=== PATIENT | male | born 1930 | race Caucasian/White ===

== ENCOUNTER 2017-06-17 17:14 | Inpatient (IN) | payer MEDICARE, OTHER ==
--- NOTE | 2017-06-17 18:16 | EDM.PDOC ---
ED HPI GENERAL MEDICAL PROBLEM - General Chief Complaint: General Stated Complaint: dizziness, no appetite, numbness legs Time Seen by Provider: 06/17/17 17:50 Source of Information: Reports: Patient, Family, RN History Limitations: Reports: No Limitations - History of Present Illness INITIAL COMMENTS - FREE TEXT/NARRATIVE: 86 yr male presents with dizziness on/off today, numbness to arms for about 1 year, and numbness to legs progressively getting worse. State the numbness is so bad, that he can't walk and needed assist of walker and 2 friends to leave his home. States UTI and was started on antibiotic last week and had diarrhea for 1 day. States this should be done with tomorrow am dose. States he hasn't ate for a few days, but did have a meatball this am. New medication of CoQ10. Onset: Today (dizziness) - Related Data Allergies Allergy/AdvReac Type Severity Reaction Status Date / Time No Known Allergies Allergy Verified 06/17/17 17:39 Home Meds: Home Meds Furosemide [Lasix] 20 mg PO DAILY PRN 11/06/14 [History] Hydrochlorothiazide 25 mg PO BEDTIME 11/06/14 [History] Metoprolol Tartrate [Lopressor] 25 mg PO BID 11/06/14 [History] Simvastatin [Zocor] 20 mg PO BEDTIME 11/06/14 [History] amLODIPine Besylate [Amlodipine Besylate] 10 tab PO DAILY 11/06/14 [History] Aspirin [Nicki Chewable] 81 mg PO BEDTIME 10/19/15 [History] Levothyroxine Sodium [Synthroid] 25 mcg PO DAILY 11/12/15 [History] busPIRone [Buspar] 15 mg PO BID 11/12/15 [History] metFORMIN [Glucophage] 500 mg PO BIDMEALS 11/12/15 [History] Sulfamethoxazole/Trimethoprim [Sulfamethoxazole-Tmp Ds Tablet] 1 tab PO BID [History] Ubidecarenone [Co Q-10] 100 mg PO DAILY 06/17/17 [History] Past Medical History HEENT History: Reports: Cataract Cardiovascular History: Reports: High Cholesterol, Hypertension Respiratory History: Reports: SOB Gastrointestinal History: Reports: Chronic Constipation Genitourinary History: Reports: Prostate Disorder Other Genitourinary History: Pt has a hx of prostate cancer that was treated with radiation beads. Endocrine/Metabolic History: Reports: Diabetes, Type II Oncologic (Cancer) History: Reports: Prostate Dermatologic History: Reports: Other (See Below) Other Dermatologic History: Skin Ca. Growth removed - Right cheek - Infectious Disease History Infectious Disease History: Reports: Mumps - Past Surgical History Musculoskeletal Surgical History: Reports: Hip Replacement Social & Family History - Family History Family Medical History: Noncontributory Cardiac: Reports: None - Tobacco Use Smoking Status *Q: Unknown Ever Smoked Second Hand Smoke Exposure: No - Caffeine Use Caffeine Use: Reports: None - Recreational Drug Use Recreational Drug Use: No ED ROS GENERAL - Review of Systems Review Of Systems: See Below Constitutional: Reports: Weakness, Decreased Appetite HEENT: Reports: No Symptoms, Glasses Respiratory: Reports: No Symptoms. Denies: Shortness of Breath, Cough Cardiovascular: Reports: Lightheadedness. Denies: Chest Pain, Edema GI/Abdominal: Reports: No Symptoms : Reports: Frequency Musculoskeletal: Reports: Foot Pain, Other (numbness legs) Skin: Reports: No Symptoms Neurological: Reports: Numbness, Difficulty Walking, Weakness Psychiatric: Reports: Other (Takes Buspar) ED EXAM, NEURO - Physical Exam Exam: See Below Exam Limited By: No Limitations General Appearance: Alert, No Apparent Distress Ears: Normal External Exam Nose: Normal Inspection Throat/Mouth: Other (steri-strips to right neck) Head Exam: Atraumatic, Normocephalic Neck: Supple, Non-Tender Respiratory/Chest: No Respiratory Distress, Lungs Clear Cardiovascular: Normal Peripheral Pulses, Regular Rate, Rhythm, No Edema GI/Abdominal: Soft, Non-Tender, No Distention Neurological: Alert, Normal Mood/Affect, Oriented x 3, Difficulty Walking Back Exam: Normal Inspection Extremities: No Pedal Edema, Normal Capillary Refill, Joint Swelling (left third toe is swollen, probable gout/tophii) Psychiatric: Normal Affect, Normal Mood Skin Exam: Warm, Dry, Normal Color Course - Vital Signs Last Recorded V/S: Last Vital Signs Temp 97.7 F 06/17/17 17:59 Pulse 74 06/17/17 17:59 Resp 18 06/17/17 17:59 BP 128/54 L 06/17/17 17:59 Pulse Ox 97 06/17/17 17:59 - Orders/Labs/Meds Orders: Active Orders 24 hr Category Date Time Status Admission Diagnosis [ADT] Urgent ADT 06/17/17 19:06 Active Patient Status [ADT] Routine ADT 06/17/17 19:22 Active Oxygen Therapy [RC] PRN Care 06/17/17 19:22 Active Up With Assistance [RC] ASDIRECTED Care 06/17/17 19:22 Active Vital Signs [RC] Q4H Care 06/17/17 19:22 Active Consistent Carbohydrate Diet [DIET] Diet 06/18/17 Breakfast Ordered Acetaminophen [Tylenol] Med 06/17/17 19:22 Active 650 mg PO Q4H PRN Aspirin Med 06/17/17 20:00 Active 81 mg PO BEDTIME Docusate Sodium [Colace] Med 06/17/17 19:22 Active 100 mg PO DAILY PRN Levothyroxine Med 06/18/17 07:00 Active 25 mcg PO ACBREAKFAST Magnesium Hydroxide [Milk of Magnesia] Med 06/17/17 19:22 Active 30 ml PO BID PRN Metoprolol Tartrate [Lopressor] Med 06/17/17 20:00 Active 25 mg PO BID Simvastatin [Zocor] Med 06/17/17 20:00 Active 20 mg PO BEDTIME Sodium Chloride 0.9% [Normal Saline] 1,000 ml Med 06/17/17 19:30 Active IV ASDIRECTED amLODIPine [Norvasc] Med 06/17/17 20:00 Active 10 mg PO BEDTIME busPIRone [Buspar] Med 06/17/17 20:00 Active 15 mg PO BID Medication Orders Acetaminophen (Tylenol) 650 mg PO Q4H PRN PRN Reason: analgesia/fever Amlodipine Besylate (Norvasc) 10 mg PO BEDTIME ROBEL Aspirin (Aspirin) 81 mg PO BEDTIME [facility]EL Buspirone HCl (Buspar) 15 mg PO BID [facility]EL Docusate Sodium (Colace) 100 mg PO DAILY PRN PRN Reason: Constipation Sodium Chloride (Normal Saline) 1,000 mls @ 125 mls/hr IV ASDIRECTED ROBEL Levothyroxine Sodium (Levothyroxine) 25 mcg PO ACBREAKFAST ROBEL Magnesium Hydroxide (Milk Of Magnesia) 30 ml PO BID PRN PRN Reason: Constipation Metoprolol Tartrate (Lopressor) 25 mg PO BID ROBEL Simvastatin (Zocor) 20 mg PO BEDTIME [facility] Labs: Laboratory Tests 06/17/17 06/17/17 06/17/17 Range/Units 18:10 18:10 18:10 WBC 8.5 (4.0-11.0) K/uL RBC 3.75 L (4.50-6.50) M/uL Hgb 11.3 L (13.0-18.0) g/dL Hct 32.4 L (40.0-54.0) % MCV 86 (76-96) fL MCH 30.1 (27.0-32.0) pg MCHC 34.9 (31.0-35.0) g/dL RDW 15.4 (11.0-16.0) % Plt Count 248 (150-400) K/uL MPV 9.4 (6.0-10.0) fL Neut % (Auto) 66.1 (45.0-70.0) % Lymph % (Auto) 22.2 (20.0-40.0) % [place] % (Auto) 11.0 H (3.0-10.0) % Eos % (Auto) 0.2 L (1.0-5.0) % Baso % (Auto) 0.5 (0.0-0.5) % Neut # (Auto) 5.64 (2.00-7.50) K/uL Lymph # (Auto) 1.89 (1.50-4.00) K/uL [place] # (Auto) 0.94 H (0.20-0.80) K/uL Eos # (Auto) 0.02 L (0.04-0.40) K/uL Baso # (Auto) 0.04 (0.02-0.10) K/uL Sodium 127 L (136-145) mmol/L Potassium 3.8 (3.5-5.1) mmol/L Chloride 90 L (98-107) mmol/L Carbon Dioxide 21.8 D (21.0-32.0) mmol/L Anion Gap 19.0 H (5.0-15.0) mmol/L BUN 57 H* (8-26) mg/dL Creatinine 3.08 H* D (0.70-1.30) mg/dL Est Cr Clr Drug Dosing TNP Estimated GFR (MDRD) 19 L (>60) MLS/MIN BUN/Creatinine Ratio 18.5 (6-25) Glucose 157 H (74-100) mg/dL Calcium 9.4 (8.5-10.1) mg/dL Total Bilirubin 0.6 D (0.0-1.0) mg/dL AST 25 (15-37) U/L ALT 15 (12-78) U/L Alkaline Phosphatase 98 (46-116) U/L Total Protein 7.6 (6.4-8.2) g/dL Albumin 3.9 (3.4-5.0) g/dL Globulin 3.7 (2.2-4.2) g/dL Albumin/Globulin Ratio 1.1 (0.8-2.0) TSH, Ultra Sensitive 2.675 (0.358-3.740) uIU/mL Urine Color Yellow Urine Appearance Clear (CLEAR) Urine pH 5.5 (5.0-8.0) Ur Specific [place] 1.010 (1.003-1.030) Urine Protein Negative (NEGATIVE) mg/dL Urine Glucose (UA) Negative (NEGATIVE) mg/dL Urine Ketones Negative (NEGATIVE) mg/dL Urine Occult Blood Negative (NEGATIVE) Urine Nitrite Negative (NEGATIVE) Urine Bilirubin Negative (NEGATIVE) Urine Urobilinogen 0.2 (0.2-1.0) E.U./dL Ur Leukocyte Esterase Negative (NEGATIVE) Urine RBC Not seen /HPF Urine WBC 0-5 H /HPF Ur Squamous Epith Cells Rare /HPF Urine Bacteria Not seen /HPF Meds: Medications Generic Name Dose Route Start Last Admin Trade Name Freq PRN Reason Stop Dose Admin Acetaminophen 650 mg 06/17/17 19:22 Tylenol PO Q4H PRN analgesia/fever Amlodipine Besylate 10 mg 06/17/17 20:00 Norvasc PO BEDTIME ROBEL Aspirin 81 mg 06/17/17 20:00 Aspirin PO BEDTIME ROBEL Buspirone HCl 15 mg 06/17/17 20:00 Buspar PO BID ROBEL Docusate Sodium 100 mg 06/17/17 19:22 Colace PO DAILY PRN Constipation Sodium Chloride 1,000 mls @ 125 mls/hr 06/17/17 19:30 Normal Saline IV ASDIRECTED ROBEL Levothyroxine Sodium 25 mcg 06/18/17 07:00 Levothyroxine PO ACBREAKFAST ROBEL Magnesium Hydroxide 30 ml 06/17/17 19:22 Milk Of Magnesia PO BID PRN Constipation Metoprolol Tartrate 25 mg 06/17/17 20:00 Lopressor PO BID ROBEL Simvastatin 20 mg 06/17/17 20:00 Zocor PO BEDTIME ROBEL Discontinued Medications Generic Name Dose Route Start Last Admin Trade Name Freq PRN Reason Stop Dose Admin Sodium Chloride 1,000 mls @ 125 mls/hr 06/17/17 19:00 Normal Saline IV ASDIRECTED ROBEL Non-Formulary Medication 10 tab 06/18/17 08:00 Amlodipine Besylate [Amlodipine Besylate] PO DAILY ROBEL Non-Formulary Medication 81 mg 06/17/17 20:00 Aspirin [Nicki Chewable Aspirin] PO BEDTIME ROBEL Non-Formulary Medication 15 mg 06/17/17 20:00 Buspirone [Buspar] PO BID ROBEL Non-Formulary Medication 20 mg 06/18/17 08:00 Furosemide [Lasix] PO DAILY ROBEL Non-Formulary Medication 25 mcg 06/18/17 08:00 Levothyroxine Sodium [Synthroid] PO DAILY ROBEL Non-Formulary Medication 25 mg 06/17/17 20:00 Metoprolol Tartrate [Lopressor] PO BID ROBEL Non-Formulary Medication 20 mg 06/17/17 20:00 Simvastatin [Zocor] PO BEDTIME ROBEL Ondansetron HCl 4 mg 06/17/17 19:20 Zofran IVPUSH 06/17/17 19:21 ONETIME ONE - Re-Assessments/Exams Free Text/Narrative Re-Assessment/Exam: 06/17/17 19:51 LE Review of lab results and noted decrease in kidney function and hyponatremia , U/A improved, no leukocytosis and low hemoglobin noted. Reviewed lab results with pt and friends, will admit for hyponatremia and weakness. Will start IV Nacl @125cc/hr. Departure - Departure Time of Disposition: 18:55 Disposition: Admitted As Inpatient 66 Condition: Fair Clinical Impression: Hyponatremia - Discharge Information Referrals: PCP,None [Primary Care Provider] - Forms: ED Department Discharge - My Orders Last 24 Hours: My Active Orders 06/17/17 19:06 Admission Diagnosis [ADT] Urgent 06/17/17 19:22 Patient Status [ADT] Routine Oxygen Therapy [RC] PRN Up With Assistance [RC] ASDIRECTED Vital Signs [RC] Q4H Acetaminophen [Tylenol] 650 mg PO Q4H PRN Docusate Sodium [Colace] 100 mg PO DAILY PRN Magnesium Hydroxide [Milk of Magnesia] 30 ml PO BID PRN 06/17/17 19:30 Sodium Chloride 0.9% [Normal Saline] 1,000 ml IV ASDIRECTED 06/17/17 20:00 Aspirin 81 mg PO BEDTIME Metoprolol Tartrate [Lopressor] 25 mg PO BID Simvastatin [Zocor] 20 mg PO BEDTIME amLODIPine [Norvasc] 10 mg PO BEDTIME busPIRone [Buspar] 15 mg PO BID 06/18/17 07:00 Levothyroxine 25 mcg PO ACBREAKFAST 06/18/17 Breakfast Consistent Carbohydrate Diet [DIET] - Assessment/Plan Last 24 Hours: My Active Orders 06/17/17 19:06 Admission Diagnosis [ADT] Urgent 06/17/17 19:22 Patient Status [ADT] Routine Oxygen Therapy [RC] PRN Up With Assistance [RC] ASDIRECTED Vital Signs [RC] Q4H Acetaminophen [Tylenol] 650 mg PO Q4H PRN Docusate Sodium [Colace] 100 mg PO DAILY PRN Magnesium Hydroxide [Milk of Magnesia] 30 ml PO BID PRN 06/17/17 19:30 Sodium Chloride 0.9% [Normal Saline] 1,000 ml IV ASDIRECTED 06/17/17 20:00 Aspirin 81 mg PO BEDTIME Metoprolol Tartrate [Lopressor] 25 mg PO BID Simvastatin [Zocor] 20 mg PO BEDTIME amLODIPine [Norvasc] 10 mg PO BEDTIME busPIRone [Buspar] 15 mg PO BID 06/18/17 07:00 Levothyroxine 25 mcg PO ACBREAKFAST 06/18/17 Breakfast Consistent Carbohydrate Diet [DIET]
[2017-06-17] MEDS ORDERED: Sodium Chloride 0.9% 1,000 ML IV SCH (19:00)
[2017-06-17] MEDS ORDERED: Ondansetron 4 MG/2 ML SDV IVPUSH ONE (19:20)
[2017-06-17] MEDS: Sodium Chloride 0.9% 1,000 ML IV SCH (19:20)
[2017-06-17] MEDS ORDERED: Docusate Sodium 100 MG Cap PO PRN (19:22)
[2017-06-17] MEDS ORDERED: Magnesium Hydroxide 400 MG/5 ML Susp 30 ML Cup PO PRN (19:22)
[2017-06-17] MEDS ORDERED: Non-Formulary Medication 1 Each (Metoprolol Tartrate [Lopressor] 25 MG) PO SCH (20:00)
[2017-06-17] MEDS ORDERED: Non-Formulary Medication 1 Each (Simvastatin [Zocor] 20 MG) PO SCH (20:00)
[2017-06-17] MEDS ORDERED: Non-Formulary Medication 1 Each (Aspirin [Bayer Chewable Aspirin] 81 MG) PO SCH (20:00)
[2017-06-17] MEDS ORDERED: Non-Formulary Medication 1 Each (Buspirone [Buspar] 15 MG) PO SCH (20:00)
[2017-06-17] MEDS: amLODIPine 10 MG Tab PO SCH (21:44)
[2017-06-17] MEDS: Metoprolol Tartrate 25 MG Tab PO SCH (21:44)
[2017-06-17] MEDS: busPIRone 15 MG Tab PO SCH ×2 (21:45→21:49)
[2017-06-17] MEDS: Simvastatin 20 MG Tab PO SCH (21:45)
[2017-06-17] MEDS: Aspirin 81 MG Tab.Chew PO SCH (21:45)
[2017-06-17] MEDS ORDERED: busPIRone 10 MG Tab ONE (21:47)
[2017-06-17] MEDS: Acetaminophen 325 MG Tab PO PRN (21:48)
[2017-06-18] MEDS: Melatonin 3 MG Tab PO PRN (01:26)
[2017-06-18] MEDS: Sodium Chloride 0.9% 1,000 ML IV SCH ×3 (03:21→20:46)
[2017-06-18] MEDS: Levothyroxine 25 MCG Tab PO SCH (06:55)
[2017-06-18] MEDS ORDERED: busPIRone 10 MG Tab ONE ×2 (07:18→19:47)
[2017-06-18] MEDS: Metoprolol Tartrate 25 MG Tab PO SCH ×2 (07:25→19:55)
[2017-06-18] MEDS: busPIRone 15 MG Tab PO SCH ×2 (07:25→19:58)
[2017-06-18] MEDS ORDERED: Non-Formulary Medication 1 Each (Furosemide [Lasix] 20 MG) PO SCH (08:00)
[2017-06-18] MEDS ORDERED: AMLODIPINE BESYLATE PO SCH (08:00)
[2017-06-18] MEDS ORDERED: LEVOTHYROXINE SODIUM 25 MCG PO SCH (08:00)
--- NOTE | 2017-06-18 08:45 | PCM.PN ---
- General Info Date of Service: 06/18/17 Admission Dx/Problem (Free Text): hyponatremia weakness upper and lower extremities urinary retention decrease kidney function Functional Status: Reports: Tolerating Diet - Review of Systems General: Reports: Weakness HEENT: Reports: No Symptoms Pulmonary: Reports: No Symptoms Cardiovascular: Reports: No Symptoms Gastrointestinal: Reports: Constipation Genitourinary: Reports: Retention, Other (wheat catheter) Musculoskeletal: Reports: Other (weakness and numbness upper and lower extremities) Skin: Reports: No Symptoms Neurological: Reports: Numbness, Difficulty Walking, Weakness Psychiatric: Reports: No Symptoms - Patient Data Vitals - Most Recent: Last Vital Signs Temp 98.0 F 06/18/17 03:39 Pulse 58 L 06/18/17 07:25 Resp 16 06/18/17 00:00 BP 111/56 L 06/18/17 07:25 Pulse Ox 94 L 06/18/17 03:39 Weight - Most Recent: 151 lb 9.6 oz I&O - Last 24 Hours: Intake & Output 06/17/17 06/18/17 06/18/17 22:59 06:59 14:59 Intake Total 120 1854 Output Total 1025 850 Balance -905 1004 Lab Results Last 24 Hours: Laboratory Results - last 24 hr 06/18/17 Range/Units 07:15 Sodium 132 L (136-145) mmol/L Potassium 4.2 (3.5-5.1) mmol/L Chloride 98 (98-107) mmol/L Carbon Dioxide 25.3 (21.0-32.0) mmol/L Anion Gap 12.9 (5.0-15.0) mmol/L BUN 55 H* (8-26) mg/dL Creatinine 2.80 H (0.70-1.30) mg/dL Est Cr Clr Drug Dosing 17.09 mL/min Estimated GFR (MDRD) 22 L (>60) MLS/MIN BUN/Creatinine Ratio 19.6 (6-25) Glucose 84 D (74-100) mg/dL Uric Acid 6.9 (2.6-7.2) mg/dL Calcium 8.5 (8.5-10.1) mg/dL Med Orders - Current: Current Medications Acetaminophen (Tylenol) 650 mg PO Q4H PRN PRN Reason: analgesia/fever Last Admin: 06/17/17 21:48 Dose: 650 mg Amlodipine Besylate (Norvasc) 10 mg PO BEDTIME [facility] Last Admin: 06/17/17 21:44 Dose: 10 mg Aspirin (Aspirin) 81 mg PO BEDTIME [facility] Last Admin: 06/17/17 21:45 Dose: 81 mg Buspirone HCl (Buspar) 15 mg PO BID [facility] Last Admin: 06/18/17 07:25 Dose: 15 mg Docusate Sodium (Colace) 100 mg PO DAILY PRN PRN Reason: Constipation Sodium Chloride (Normal Saline) 1,000 mls @ 125 mls/hr IV ASDIRECTED [facility] Last Admin: 06/18/17 03:21 Dose: 125 mls/hr Influenza Virus Vaccine (Fluzone Quad [id number]) 60 mcg IM .ONCE ONE Stop: 06/18/17 10:01 Levothyroxine Sodium (Levothyroxine) 25 mcg PO ACBREAKFAST [facility] Last Admin: 06/18/17 06:55 Dose: 25 mcg Magnesium Hydroxide (Milk Of Magnesia) 30 ml PO BID PRN PRN Reason: Constipation Melatonin (Melatonin) 3 mg PO BEDTIME PRN PRN Reason: Insomnia Last Admin: 06/18/17 01:26 Dose: 3 mg Metoprolol Tartrate (Lopressor) 25 mg PO BID [facility] Last Admin: 06/18/17 07:25 Dose: 25 mg Pneumococcal Polyvalent Vaccine (Pneumovax 23) 0.5 ml IM .ONCE ONE Stop: 06/18/17 10:01 Simvastatin (Zocor) 20 mg PO BEDTIME [facility] Last Admin: 06/17/17 21:45 Dose: 20 mg Discontinued Medications Buspirone HCl (Buspar) Confirm Administered Dose 20 mg .ROUTE .STK-MED ONE Stop: 06/17/17 21:48 Last Admin: 06/18/17 02:45 Dose: Not Given Buspirone HCl (Buspar) Confirm Administered Dose 20 mg .ROUTE .STK-MED ONE Stop: 06/18/17 07:19 Last Admin: 06/18/17 07:26 Dose: Not Given Sodium Chloride (Normal Saline) 1,000 mls @ 125 mls/hr IV ASDIRECTED [facility] Non-Formulary Medication (Amlodipine Besylate [Amlodipine Besylate]) 10 tab PO DAILY [facility] Non-Formulary Medication (Aspirin [Nicki Chewable Aspirin]) 81 mg PO BEDTIME [facility]EL Non-Formulary Medication (Buspirone [Buspar]) 15 mg PO BID [facility]EL Non-Formulary Medication (Furosemide [Lasix]) 20 mg PO DAILY [facility]EL Non-Formulary Medication (Levothyroxine Sodium [Synthroid]) 25 mcg PO DAILY [facility]EL Non-Formulary Medication (Metoprolol Tartrate [Lopressor]) 25 mg PO BID [facility]EL Non-Formulary Medication (Simvastatin [Zocor]) 20 mg PO BEDTIME ROBEL Ondansetron HCl (Zofran) 4 mg IVPUSH ONETIME ONE Stop: 06/17/17 19:21 Last Admin: 06/17/17 22:17 Dose: Not Given - Exam Quality Assessment: Urine Catheter General: Alert, Oriented HEENT: Mucous Membr. Moist/[place] Neck: Supple, Trachea Midline Lungs: Clear to Auscultation, Normal Respiratory Effort Cardiovascular: Regular Rate, No Murmurs GI/Abdominal Exam: Normal Bowel Sounds, Soft, Non-Tender Extremities: No Pedal Edema, Normal Capillary Refill Peripheral Pulses: 2+: Dorsalis Pedis (L), Dorsalis Pedis (R) Skin: Warm, Dry, Intact Wound/Incisions: Other (steri-strips to left neck, intact) Psy/Mental Status: Alert, Normal Affect, Normal Mood - Problem List & Annotations (1) Hyponatremia SNOMED Code(s): 13200968 Code(s): E87.1 - HYPO-OSMOLALITY AND HYPONATREMIA Status: Acute Priority : High Current Visit: Yes (2) Weakness SNOMED Code(s): 45243795 Code(s): R53.1 - WEAKNESS Status: Acute Current Visit: Yes - Problem List Review Problem List Initiated/Reviewed/Updated: Yes - My Orders Last 24 Hours: My Active Orders 06/17/17 21:20 Wheat Catheter Insertion [Insert Urinary Catheter] [OM.PC] Q24H Urinary Catheter Assessment [RC] 06/18/17 00:59 Melatonin 3 mg PO BEDTIME PRN 06/18/17 03:22 ARNALDO Hose [Antiembolic Hose] [OM.PC] Routine Code Status [Resuscitation Status] Routine 06/18/17 07:15 CULTURE MRSA SURVEY [RM] Routine 06/18/17 08:07 Daily Weight [Height and Weight] [RC] DAILY 06/18/17 08:35 Consult to Physical Therapy [PT Evaluation and Treatment] [CONS] Routine 06/18/17 08:36 Consult to Occupational Therapy [OT Evaluation and Treatment] [CONS] Routine 06/18/17 10:00 FLU Vacc [id number] [id number] UP/PF [Fluzone Quad [id number]] 60 mcg IM .ONCE ONE Pneumococcal Polyvalent-23 Vac [Pneumovax 23] 0.5 ml IM .ONCE ONE 06/19/17 07:00 BASIC METABOLIC PANEL,BMP [CHEM] Routine - Plan Plan:: hyponatremia: IV Nacl Labs as ordered. Decrease in kidney function: Labs as ordered Holding home medications as ordered Weakness: PT/OT consult and treat, strengthening Pain: Medicate as ordered for pain Urinary retention: wheat catheter with bladder training
[2017-06-18] MEDS ORDERED: FLU Vacc QS 2017-18 (36mos UP)/PF 60 MCG/0.5 ML Syringe IM ONE (10:00)
[2017-06-18] MEDS ORDERED: Pneumococcal Polyvalent-23 Vaccine 0.5 ML SDV IM ONE (10:00)
[2017-06-18] MEDS: Tamsulosin 0.4 MG Cap.ER PO SCH (11:42)
[2017-06-18] MEDS: Aspirin 81 MG Tab.Chew PO SCH (19:55)
[2017-06-18] MEDS: amLODIPine 10 MG Tab PO SCH (19:56)
[2017-06-18] MEDS: Simvastatin 20 MG Tab PO SCH (19:57)
[2017-06-19] MEDS: Acetaminophen 325 MG Tab PO PRN (02:17)
[2017-06-19] MEDS: Melatonin 3 MG Tab PO PRN (02:17)
[2017-06-19] MEDS: Levothyroxine 25 MCG Tab PO SCH (06:37)
[2017-06-19] MEDS ORDERED: busPIRone 10 MG Tab ONE ×2 (07:51→21:32)
[2017-06-19] MEDS: busPIRone 15 MG Tab PO SCH ×2 (08:04→21:00)
[2017-06-19] MEDS: Metoprolol Tartrate 25 MG Tab PO SCH ×2 (08:04→21:20)
--- NOTE | 2017-06-19 08:06 | PCM.PN ---
- General Info Date of Service: 06/19/17 Admission Dx/Problem (Free Text): hyponatremia weakness upper and lower extremities urinary retention decrease kidney function Functional Status: Reports: Tolerating Diet, Ambulating - Review of Systems General: Reports: No Symptoms HEENT: Reports: No Symptoms Pulmonary: Reports: No Symptoms Cardiovascular: Reports: No Symptoms Gastrointestinal: Reports: No Symptoms Genitourinary: Reports: Other (wheat catheter) Musculoskeletal: Reports: Hand Pain (left hand worse than right hand, had Tylenol in pm for this and is better today.), Leg Pain Skin: Reports: No Symptoms Neurological: Reports: No Symptoms Psychiatric: Reports: No Symptoms - Patient Data Vitals - Most Recent: Last Vital Signs Temp 98.0 F 06/19/17 02:57 Pulse 50 L 06/19/17 02:57 Resp 14 06/19/17 02:57 BP 102/45 L 06/19/17 02:57 Pulse Ox 89 L 06/19/17 02:57 Weight - Most Recent: 151 lb I&O - Last 24 Hours: Intake & Output 06/18/17 06/19/17 06/19/17 22:59 06:59 14:59 Intake Total 1999 1600 Output Total 1999 1650 Balance 0 -50 Med Orders - Current: Current Medications Acetaminophen (Tylenol) 650 mg PO Q4H PRN PRN Reason: analgesia/fever Last Admin: 06/19/17 02:17 Dose: 650 mg Amlodipine Besylate (Norvasc) 10 mg PO BEDTIME [facility] Last Admin: 06/18/17 19:56 Dose: 10 mg Aspirin (Aspirin) 81 mg PO BEDTIME [facility] Last Admin: 06/18/17 19:55 Dose: 81 mg Buspirone HCl (Buspar) 15 mg PO BID [facility] Last Admin: 06/18/17 19:58 Dose: 15 mg Docusate Sodium (Colace) 100 mg PO DAILY PRN PRN Reason: Constipation Sodium Chloride (Normal Saline) 1,000 mls @ 125 mls/hr IV ASDIRECTED [facility] Last Admin: 06/18/17 20:46 Dose: 75 mls/hr Levothyroxine Sodium (Levothyroxine) 25 mcg PO ACBREAKFAST [facility] Last Admin: 06/19/17 06:37 Dose: 25 mcg Magnesium Hydroxide (Milk Of Magnesia) 30 ml PO BID PRN PRN Reason: Constipation Melatonin (Melatonin) 3 mg PO BEDTIME PRN PRN Reason: Insomnia Last Admin: 06/19/17 02:17 Dose: 3 mg Metoprolol Tartrate (Lopressor) 25 mg PO BID [facility] Last Admin: 06/18/17 19:55 Dose: 25 mg Simvastatin (Zocor) 20 mg PO BEDTIME [facility] Last Admin: 06/18/17 19:57 Dose: 20 mg Tamsulosin HCl (Flomax) 0.4 mg PO PCBREAKFAST [facility] Last Admin: 06/18/17 11:42 Dose: 0.4 mg Discontinued Medications Buspirone HCl (Buspar) Confirm Administered Dose 20 mg .ROUTE .STK-MED ONE Stop: 06/17/17 21:48 Last Admin: 06/18/17 02:45 Dose: Not Given Buspirone HCl (Buspar) Confirm Administered Dose 20 mg .ROUTE .STK-MED ONE Stop: 06/18/17 07:19 Last Admin: 06/18/17 07:26 Dose: Not Given Buspirone HCl (Buspar) Confirm Administered Dose 20 mg .ROUTE .STK-MED ONE Stop: 06/18/17 19:48 Last Admin: 06/19/17 03:01 Dose: Not Given Buspirone HCl (Buspar) Confirm Administered Dose 20 mg .ROUTE .STK-MED ONE Stop: 06/19/17 07:52 Sodium Chloride (Normal Saline) 1,000 mls @ 125 mls/hr IV ASDIRECTED [facility] Influenza Virus Vaccine (Fluzone Quad [id number]) 60 mcg IM .ONCE ONE Stop: 06/18/17 10:01 Last Admin: 06/18/17 11:38 Dose: 60 mcg Non-Formulary Medication (Amlodipine Besylate [Amlodipine Besylate]) 10 tab PO DAILY [facility] Non-Formulary Medication (Aspirin [Nicki Chewable Aspirin]) 81 mg PO BEDTIME [facility] Non-Formulary Medication (Buspirone [Buspar]) 15 mg PO BID [facility] Non-Formulary Medication (Furosemide [Lasix]) 20 mg PO DAILY [facility] Non-Formulary Medication (Levothyroxine Sodium [Synthroid]) 25 mcg PO DAILY [facility] Non-Formulary Medication (Metoprolol Tartrate [Lopressor]) 25 mg PO BID [facility] Non-Formulary Medication (Simvastatin [Zocor]) 20 mg PO BEDTIME [facility] Ondansetron HCl (Zofran) 4 mg IVPUSH ONETIME ONE Stop: 06/17/17 19:21 Last Admin: 06/17/17 22:17 Dose: Not Given Pneumococcal Polyvalent Vaccine (Pneumovax 23) 0.5 ml IM .ONCE ONE Stop: 06/18/17 10:01 - Exam General: Alert, Oriented HEENT: Mucous Membr. Moist/[place] Neck: Trachea Midline Lungs: Clear to Auscultation, Normal Respiratory Effort Cardiovascular: Regular Rate GI/Abdominal Exam: Normal Bowel Sounds, Soft, Non-Tender Back Exam: Normal Inspection Extremities: No Pedal Edema, Normal Capillary Refill, Joint Swelling, Other ( hand pain) Peripheral Pulses: 2+: Dorsalis Pedis (L), Dorsalis Pedis (R) Skin: Warm, Dry, Intact Neurological: Normal Speech, Strength Equal Bilateral Psy/Mental Status: Alert, Normal Affect, Normal Mood - Problem List & Annotations (1) Hyponatremia SNOMED Code(s): 98434046 Code(s): E87.1 - HYPO-OSMOLALITY AND HYPONATREMIA Status: Acute Priority : High Current Visit: Yes (2) Weakness SNOMED Code(s): 93006881 Code(s): R53.1 - WEAKNESS Status: Acute Current Visit: Yes (3) Pain SNOMED Code(s): 73495519 Code(s): R52 - PAIN, UNSPECIFIED Status: Acute Current Visit: Yes (4) Anemia SNOMED Code(s): 632563072 Code(s): D64.9 - ANEMIA, UNSPECIFIED Status: Acute Priority: Medium Current Visit: Yes Qualifiers: Anemia type: due to chronic kidney disease - Problem List Review Problem List Initiated/Reviewed/Updated: Yes - My Orders Last 24 Hours: My Active Orders 06/18/17 07:15 CULTURE MRSA SURVEY [RM] Routine 06/18/17 08:07 Daily Weight [Height and Weight] [RC] DAILY 06/18/17 08:35 Consult to Physical Therapy [PT Evaluation and Treatment] [CONS] Routine 06/18/17 08:36 Consult to Occupational Therapy [OT Evaluation and Treatment] [CONS] Routine 06/18/17 09:55 Bladder Training Program [RC] ROUTINE 06/18/17 12:00 Tamsulosin [Flomax] 0.4 mg PO PCBREAKFAST 06/19/17 07:00 BASIC METABOLIC PANEL,BMP [CHEM] Routine CBC WITH AUTO DIFF [HEME] Routine PSA SCREEN [CHEM] Routine - Plan Plan:: hyponatremia: IV Nacl Labs as ordered. Decrease in kidney function: Labs as ordered Holding home medications as ordered Weakness: PT/OT consult and treat, strengthening Pain: Medicate as ordered for pain Urinary retention: D/C wheat catheter today Possible discharge home tomorrow. Pt lives alone and neighbors bring food to him daily and assist as needed. trinity Noel states concerned w pt going home. States he doesn't cook and doesn't always eat food. States he may be afraid of leaving stove on and possibly doesn't reheat food or eat. 06-19-2017 17:00 OT evaluation completed. [facility] cognitive assessment completed and scored . 06-19-2017 18:00 Contacted by interstate planner today, [place] State meeting was held and discussed options for pt. If stable this am and unable to return home, respite with private pay is available, SWING bed admission may be possible for oweakness and strengthening with PT for increase endurance and use of stairs. Pt reports legs are still weak. Sadie neighbor friend, states concerned with pt going home and use of stairs to do laundry in basement and possible fall. Also concerned that pt not eating or making meals as needed, possibly related to memory concerns and fear of leaving stove on.
[2017-06-19] MEDS: Sodium Chloride 0.9% 1,000 ML IV SCH (09:29)
[2017-06-19] MEDS: Tamsulosin 0.4 MG Cap.ER PO SCH (09:45)
[2017-06-19] MEDS ORDERED: Sodium Chloride 0.9% 1,000 ML IV SCH (12:00)
[2017-06-19] MEDS ORDERED: Acetaminophen 650 MG Tab.ER ONE (14:07)
[2017-06-19] MEDS: Acetaminophen 650 MG Tab.ER PO SCH ×2 (14:12→21:26)
[2017-06-19] MEDS: Ferrous Sulfate 325 MG Tab PO SCH (18:47)
[2017-06-19] MEDS: Aspirin 81 MG Tab.Chew PO SCH (21:20)
[2017-06-19] MEDS: amLODIPine 10 MG Tab PO SCH (21:26)
[2017-06-19] MEDS: Simvastatin 20 MG Tab PO SCH (21:26)
[2017-06-20] MEDS: Acetaminophen 650 MG Tab.ER PO SCH (06:28)
[2017-06-20] MEDS: Levothyroxine 25 MCG Tab PO SCH (06:28)
[2017-06-20] MEDS: Metoprolol Tartrate 25 MG Tab PO SCH (08:35)
[2017-06-20] MEDS: Ferrous Sulfate 325 MG Tab PO SCH (08:36)
[2017-06-20 08:37] VITALS: BP 132/57
[2017-06-20] MEDS ORDERED: busPIRone 10 MG Tab ONE (08:39)
[2017-06-20] MEDS: busPIRone 15 MG Tab PO SCH (08:40)
--- NOTE | 2017-06-20 10:35 | PCM.DCSUM1 ---
Discharge Summary - Hospital Course Free Text/Narrative:: Transfer to Swing bed program today. Pt has urinary retention after voiding during night, with greater than 300 cc in bladder after voiding at 2 different times. Intermittent catheter inserted after bladder scan with large amount of urinary retention. Pt states hx of prostate cancer and had many treatments in past for this. PSA checked and normal value. Pt states up to void every 2 hour at home. Kidney function improved and hyponatremia resolved. Will continue to monitor this. PT/OT to continue to assist with strengthening and exercise and use of stairs, so pt can get into his home. Will restart Metformin today with blood sugar slightly elevated this am. Will monitor kidney function. May consider adding Lisinopril to medication regime and possible decrease dose of Norvasc. - Discharge Data Discharge Date: 06/20/17 Discharge Disposition: DC/Tfer W/I Hosp To Swing Condition: Good - Discharge Diagnosis/Problem(s) (1) Hyponatremia SNOMED Code(s): 69990751 ICD Code: E87.1 - HYPO-OSMOLALITY AND HYPONATREMIA Status: Acute Priority : Low Problem Details: resolved will continue to monitor (2) Weakness SNOMED Code(s): 36709960 ICD Code: R53.1 - WEAKNESS Status: Acute Priority: High Problem Details : Continue with PT/OT for strengthening, exercise and use of stairs (3) Pain SNOMED Code(s): 58859238 ICD Code: R52 - PAIN, UNSPECIFIED Status: Acute Priority: Low Problem Details: improved (4) Anemia SNOMED Code(s): 939735172 ICD Code: D64.9 - ANEMIA, UNSPECIFIED Status: Acute Priority: Medium Qualifiers: Anemia type: due to chronic kidney disease (5) Urinary retention with incomplete bladder emptying SNOMED Code(s): 024797956 ICD Code: R33.9 - RETENTION OF URINE, UNSPECIFIED Status: Acute Priority : High Problem Details: Wheat catheter X 1 week, started Flomax and will adjust after 1 week. May need to consider adding Finesteride. - Patient Summary/Data Consults: Consultations 06/18/17 08:35 Consult to Physical Therapy [PT Evaluation and Treatment] [CONS] Routine Please Evaluate and Treat. PT Reason for Consult: weakness and numbness upper and lower extremities This query below is only for informational purposes and is not editable. Admission Diagnosis/Problem: Hyponatremia 06/18/17 08:36 Consult to Occupational Therapy [OT Evaluation and Treatment] [CONS] Routine Please Evaluate and Treat. OT Reason for Consult: weakness and numbness to upper and lower extremities This query below is only for informational purposes and is not editable. Admission Diagnosis/Problem: Hyponatremia - Patient Instructions Diet: Diabetic Diet Activity: As Tolerated Activity, Other: with assist Showering/Bathing: May Shower Notify Provider of: Fever, Increased Pain - Discharge Plan Home Medications: Home Meds Metoprolol Tartrate [Lopressor] 25 mg PO BID 11/06/14 [History] Simvastatin [Zocor] 20 mg PO BEDTIME 11/06/14 [History] amLODIPine Besylate [Amlodipine Besylate] 10 tab PO DAILY 11/06/14 [History] Aspirin [Nicki Chewable] 81 mg PO BEDTIME 10/19/15 [History] Levothyroxine Sodium [Synthroid] 25 mcg PO DAILY 11/12/15 [History] busPIRone [Buspar] 15 mg PO BID 11/12/15 [History] metFORMIN [Glucophage] 250 mg PO BIDMEALS 11/12/15 [History] Ubidecarenone [Co Q-10] 100 mg PO DAILY 06/17/17 [History] Tamsulosin HCl [Flomax] 0.4 mg PO ACLUNCH 06/20/17 [History] Forms: ED Department Discharge Referrals: PCP,None [Primary Care Provider] - - General Info Date of Service: 06/20/17 Admission Dx/Problem (Free Text: hyponatremia weakness upper and lower extremities urinary retention decrease kidney function Functional Status: Reports: Tolerating Diet, Ambulating - Review of Systems General: Reports: No Symptoms HEENT: Reports: No Symptoms Pulmonary: Reports: No Symptoms Cardiovascular: Reports: No Symptoms Gastrointestinal: Reports: No Symptoms Genitourinary: Reports: Retention, Other (wheat catheter) Musculoskeletal: Reports: Other (pain improved to hand and feet/legs) Neurological: Reports: No Symptoms Psychiatric: Reports: No Symptoms - Patient Data Vitals - Most Recent: Last Vital Signs Temp 97.6 F 06/20/17 08:00 Pulse 76 06/20/17 08:35 Resp 20 06/20/17 08:00 BP 132/57 L 06/20/17 08:35 Pulse Ox 100 06/20/17 08:00 Weight - Most Recent: 151 lb I&O - Last 24 hours: Intake & Output 06/19/17 06/20/17 06/20/17 22:59 06:59 14:59 Intake Total 600 860 Output Total 800 1500 Balance -200 -640 Lab Results - Last 24 hrs: Laboratory Results - last 24 hr 06/20/17 Range/Units 08:13 Sodium 138 (136-145) mmol/L Potassium 4.2 (3.5-5.1) mmol/L Chloride 106 (98-107) mmol/L Carbon Dioxide 21.3 (21.0-32.0) mmol/L Anion Gap 14.9 (5.0-15.0) mmol/L BUN 37 H D (8-26) mg/dL Creatinine 1.81 H (0.70-1.30) mg/dL Est Cr Clr Drug Dosing 26.44 mL/min Estimated GFR (MDRD) 36 L (>60) MLS/MIN BUN/Creatinine Ratio 20.4 (6-25) Glucose 129 H D (74-100) mg/dL Calcium 8.8 (8.5-10.1) mg/dL EDAD Results - Last 24 hrs: Microbiology 06/18/17 07:15 MRSA Surveillance Culture - Final Nares, Unspecified NO MRSA ISOLATED Med Orders - Current: Current Medications Acetaminophen (Tylenol Arthritis Pain) 650 mg PO Q8H [facility] Last Admin: 06/20/17 06:28 Dose: Not Given Amlodipine Besylate (Norvasc) 10 mg PO BEDTIME [facility] Last Admin: 06/19/17 21:26 Dose: 10 mg Aspirin (Aspirin) 81 mg PO BEDTIME [facility] Last Admin: 06/19/17 21:20 Dose: 81 mg Buspirone HCl (Buspar) 15 mg PO BID [facility] Last Admin: 06/20/17 08:40 Dose: 15 mg Docusate Sodium (Colace) 100 mg PO DAILY PRN PRN Reason: Constipation Last Admin: 06/19/17 09:45 Dose: 100 mg Ferrous Sulfate (Ferrous Sulfate) 325 mg PO BIDMEALS [facility] Last Admin: 06/20/17 08:36 Dose: 325 mg Sodium Chloride (Normal Saline) 1,000 mls @ 50 mls/hr IV ASDIRECTED [facility] Levothyroxine Sodium (Levothyroxine) 25 mcg PO ACBREAKFAST [facility] Last Admin: 06/20/17 06:28 Dose: 25 mcg Magnesium Hydroxide (Milk Of Magnesia) 30 ml PO BID PRN PRN Reason: Constipation Melatonin (Melatonin) 3 mg PO BEDTIME PRN PRN Reason: Insomnia Last Admin: 06/19/17 02:17 Dose: 3 mg Metoprolol Tartrate (Lopressor) 25 mg PO BID [facility] Last Admin: 06/20/17 08:35 Dose: 25 mg Simvastatin (Zocor) 20 mg PO BEDTIME [facility] Last Admin: 06/19/17 21:26 Dose: 20 mg Tamsulosin HCl (Flomax) 0.4 mg PO PCBREAKFAST [facility] Last Admin: 06/19/17 09:45 Dose: 0.4 mg Discontinued Medications Acetaminophen (Tylenol) 650 mg PO Q4H PRN PRN Reason: analgesia/fever Last Admin: 06/19/17 02:17 Dose: 650 mg Buspirone HCl (Buspar) Confirm Administered Dose 20 mg .ROUTE .STK-MED ONE Stop: 06/17/17 21:48 Last Admin: 06/18/17 02:45 Dose: Not Given Buspirone HCl (Buspar) Confirm Administered Dose 20 mg .ROUTE .STK-MED ONE Stop: 06/18/17 07:19 Last Admin: 06/18/17 07:26 Dose: Not Given Buspirone HCl (Buspar) Confirm Administered Dose 20 mg .ROUTE .STK-MED ONE Stop: 06/18/17 19:48 Last Admin: 06/19/17 03:01 Dose: Not Given Buspirone HCl (Buspar) Confirm Administered Dose 20 mg .ROUTE .STK-MED ONE Stop: 06/19/17 07:52 Buspirone HCl (Buspar) Confirm Administered Dose 20 mg .ROUTE .STK-MED ONE Stop: 06/19/17 21:33 Buspirone HCl (Buspar) Confirm Administered Dose 20 mg .ROUTE .STK-MED ONE Stop: 06/20/17 08:40 Sodium Chloride (Normal Saline) 1,000 mls @ 125 mls/hr IV ASDIRECTED [facility] Sodium Chloride (Normal Saline) 1,000 mls @ 125 mls/hr IV ASDIRECTED [facility] Last Admin: 06/19/17 09:29 Dose: 75 mls/hr Influenza Virus Vaccine (Fluzone Quad [id number]) 60 mcg IM .ONCE ONE Stop: 06/18/17 10:01 Last Admin: 06/18/17 11:38 Dose: 60 mcg Non-Formulary Medication (Amlodipine Besylate [Amlodipine Besylate]) 10 tab PO DAILY [facility] Non-Formulary Medication (Aspirin [Nicki Chewable Aspirin]) 81 mg PO BEDTIME [facility] Non-Formulary Medication (Buspirone [Buspar]) 15 mg PO BID [facility] Non-Formulary Medication (Furosemide [Lasix]) 20 mg PO DAILY [facility] Non-Formulary Medication (Levothyroxine Sodium [Synthroid]) 25 mcg PO DAILY [facility] Non-Formulary Medication (Metoprolol Tartrate [Lopressor]) 25 mg PO BID [facility] Non-Formulary Medication (Simvastatin [Zocor]) 20 mg PO BEDTIME [facility] Ondansetron HCl (Zofran) 4 mg IVPUSH ONETIME ONE Stop: 06/17/17 19:21 Last Admin: 06/17/17 22:17 Dose: Not Given Pneumococcal Polyvalent Vaccine (Pneumovax 23) 0.5 ml IM .ONCE ONE Stop: 06/18/17 10:01 - Exam Quality Assessment: Reports: Urine Catheter General: Reports: Alert, Oriented, Cooperative HEENT: Reports: Pupils Equal, Mucous Membr. Moist/[place] Neck: Reports: Supple, Trachea Midline Lungs: Reports: Clear to Auscultation, Normal Respiratory Effort Cardiovascular: Reports: Regular Rate GI/Abdominal Exam: Normal Bowel Sounds, Soft, Non-Tender Back Exam: Reports: Normal Inspection Extremities: Normal Inspection, Non-Tender, No Pedal Edema, Normal Capillary Refill Skin: Reports: Warm, Dry Neurological: Reports: No New Focal Deficit, Normal Speech, Strength Equal Bilateral Psy/Mental Status: Reports: Alert, Normal Affect, Normal Mood *Q Meaningful Use (DIS) - VTE *Q VTE Criteria *Q: - Stroke *Q Stroke Criteria *Q: - AMI *Q AMI Criteria *Q:
[2017-06-20] MEDS ORDERED: FLU Vacc QS 2017-18 (36mos UP)/PF 60 MCG/0.5 ML Syringe IM ONE (11:18)
== END 2017-06-20 11:18 | disposition swing bed (61) | DRG 641 ==
LOC: LB.ED 17:14 → UNDOADMIN 19:10 → LB.MS 19:10
PROVIDERS: ADMIT Nurse Practitioner Family; ATTEND Nurse Practitioner Family
DX: E87.1 Hypo-osmolality and hyponatremia (principal); R53.1 Weakness; I12.9 Hypertensive chronic kidney disease with stage 1 through stage 4 chronic kidney disease, or unspecified chronic kidney disease; E11.22 Type 2 diabetes mellitus with diabetic chronic kidney disease; N18.9 Chronic kidney disease, unspecified; Z79.84 Long term (current) use of oral hypoglycemic drugs; R33.9 Retention of urine, unspecified; R42 Dizziness and giddiness; R52 Pain, unspecified; Z23 Encounter for immunization; D63.1 Anemia in chronic kidney disease; E78.00 Pure hypercholesterolemia, unspecified; Z85.46 Personal history of malignant neoplasm of prostate; Z92.3 Personal history of irradiation; Z85.828 Personal history of other malignant neoplasm of skin; Z96.649 Presence of unspecified artificial hip joint; Z79.82 Long term (current) use of aspirin
CPT/HCPCS: 36415; 51701; 51702; 80048; 80053; 81001; 84443; 84550; 85025; 90686; 97110-GP; 97161-GP; 97165-GO; 97530-GO; 97530-GP; 99284; A9270-GY; G0008; G0103; J7040

== ENCOUNTER 2017-06-20 09:29 | Inpatient (IN) | payer MEDICARE, OTHER ==
[2017-06-20] MEDS: Tamsulosin 0.4 MG Cap.ER PO SCH (12:11)
[2017-06-20] MEDS: metFORMIN 500 MG Tab PO SCH (17:10)
[2017-06-20] MEDS: Ferrous Sulfate 325 MG Tab PO SCH (17:10)
[2017-06-20] MEDS ORDERED: busPIRone 10 MG Tab ONE (20:00)
[2017-06-20] MEDS: Metoprolol Tartrate 25 MG Tab PO SCH (20:16)
[2017-06-20] MEDS: Aspirin 81 MG Tab.Chew PO SCH (20:16)
[2017-06-20] MEDS: Acetaminophen 650 MG Tab.ER PO SCH (20:16)
[2017-06-20] MEDS: busPIRone 15 MG Tab PO SCH (20:17)
[2017-06-20] MEDS: Simvastatin 20 MG Tab PO SCH (20:18)
[2017-06-21] MEDS: Levothyroxine 25 MCG Tab PO SCH (06:32)
[2017-06-21] MEDS: Metoprolol Tartrate 25 MG Tab PO SCH ×2 (07:57→19:47)
[2017-06-21] MEDS: metFORMIN 500 MG Tab PO SCH ×2 (07:58→16:30)
[2017-06-21] MEDS: Acetaminophen 650 MG Tab.ER PO SCH ×2 (07:58→19:46)
[2017-06-21] MEDS: Ferrous Sulfate 325 MG Tab PO SCH ×2 (07:58→16:30)
[2017-06-21] MEDS: amLODIPine 10 MG Tab PO SCH (07:58)
[2017-06-21] MEDS: busPIRone 15 MG Tab PO SCH ×2 (07:59→19:48)
[2017-06-21] MEDS ORDERED: busPIRone 10 MG Tab ONE ×2 (08:02→19:37)
[2017-06-21] MEDS ORDERED: Tamsulosin 0.4 MG Cap.ER ONE (13:01)
[2017-06-21] MEDS: Tamsulosin 0.4 MG Cap.ER PO SCH (13:02)
[2017-06-21] MEDS: Aspirin 81 MG Tab.Chew PO SCH (19:46)
[2017-06-21] MEDS: Simvastatin 20 MG Tab PO SCH (19:48)
[2017-06-22] MEDS: Levothyroxine 25 MCG Tab PO SCH (06:27)
[2017-06-22] MEDS ORDERED: busPIRone 10 MG Tab ONE ×2 (07:19→19:46)
[2017-06-22] MEDS: busPIRone 15 MG Tab PO SCH ×2 (08:01→19:54)
[2017-06-22] MEDS: Acetaminophen 650 MG Tab.ER PO SCH ×2 (08:02→19:58)
[2017-06-22] MEDS: metFORMIN 500 MG Tab PO SCH ×2 (08:02→16:41)
[2017-06-22] MEDS: Ferrous Sulfate 325 MG Tab PO SCH ×2 (08:02→16:40)
[2017-06-22] MEDS: amLODIPine 10 MG Tab PO SCH (08:03)
[2017-06-22] MEDS: Metoprolol Tartrate 25 MG Tab PO SCH ×2 (08:08→19:55)
[2017-06-22] MEDS: Lisinopril 5 MG Tab PO SCH (08:12)
--- NOTE | 2017-06-22 08:25 | PCM.PN ---
- General Info Date of Service: 06/22/17 Admission Dx/Problem (Free Text): Urinary retention decreased kidney function Functional Status: Reports: Pain Controlled, Tolerating Diet - Review of Systems General: Reports: Weakness HEENT: Reports: No Symptoms Pulmonary: Reports: No Symptoms Cardiovascular: Reports: No Symptoms Gastrointestinal: Reports: No Symptoms Genitourinary: Reports: Retention, Other (wheat catheter) Musculoskeletal: Reports: Other (Pain improved to legs and hands) Skin: Reports: No Symptoms Neurological: Reports: No Symptoms Psychiatric: Reports: No Symptoms - Patient Data Vitals - Most Recent: Last Vital Signs Temp 98.9 F 06/21/17 08:00 Pulse 71 06/22/17 08:08 Resp 20 06/21/17 08:00 BP 149/57 H 06/22/17 08:12 Pulse Ox 97 06/21/17 08:00 I&O - Last 24 Hours: Intake & Output 06/21/17 06/22/17 06/22/17 22:59 06:59 14:59 Intake Total 900 1000 Output Total 1050 3800 Balance -150 -2800 Lab Results Last 24 Hours: Laboratory Results - last 24 hr 06/22/17 Range/Units 07:04 POC Glucose 108 (74-110) mg/dL Med Orders - Current: Current Medications Acetaminophen (Tylenol Arthritis Pain) 650 mg PO BID [facility] Last Admin: 06/22/17 08:02 Dose: 650 mg Amlodipine Besylate (Norvasc) 10 mg PO DAILY [facility] Last Admin: 06/22/17 08:03 Dose: 10 mg Aspirin (Aspirin) 81 mg PO BEDTIME [facility] Last Admin: 06/21/17 19:46 Dose: 81 mg Buspirone HCl (Buspar) 15 mg PO BID [facility] Last Admin: 06/22/17 08:01 Dose: 15 mg Ferrous Sulfate (Ferrous Sulfate) 325 mg PO BIDMEALS [facility] Last Admin: 06/22/17 08:02 Dose: 325 mg Levothyroxine Sodium (Levothyroxine) 25 mcg PO ACBREAKFAST [facility] Last Admin: 06/22/17 06:27 Dose: 25 mcg Lisinopril (Prinivil) 5 mg PO DAILY [facility] Last Admin: 06/22/17 08:12 Dose: 5 mg Metformin HCl (Glucophage) 250 mg PO BIDMEALS [facility] Last Admin: 06/22/17 08:02 Dose: 250 mg Metoprolol Tartrate (Lopressor) 25 mg PO BID [facility] Last Admin: 06/22/17 08:08 Dose: 25 mg Simvastatin (Zocor) 20 mg PO BEDTIME [facility] Last Admin: 06/21/17 19:48 Dose: 20 mg Tamsulosin HCl (Flomax) 0.4 mg PO ACLUNCH [facility] Last Admin: 06/21/17 13:02 Dose: 0.4 mg Discontinued Medications Buspirone HCl (Buspar) Confirm Administered Dose 20 mg .ROUTE .STK-MED ONE Stop: 06/20/17 20:01 Last Admin: 06/20/17 20:18 Dose: Not Given Buspirone HCl (Buspar) Confirm Administered Dose 20 mg .ROUTE .STK-MED ONE Stop: 06/21/17 08:03 Last Admin: 06/21/17 08:35 Dose: Not Given Buspirone HCl (Buspar) Confirm Administered Dose 20 mg .ROUTE .STK-MED ONE Stop: 06/21/17 19:38 Last Admin: 06/21/17 19:46 Dose: Not Given Buspirone HCl (Buspar) Confirm Administered Dose 20 mg .ROUTE .STK-MED ONE Stop: 06/22/17 07:20 Last Admin: 06/22/17 08:12 Dose: Not Given Tamsulosin HCl (Flomax) Confirm Administered Dose 0.4 mg .ROUTE .STK-MED ONE Stop: 06/21/17 13:02 Last Admin: 06/21/17 13:09 Dose: Not Given - Exam Quality Assessment: Urine Catheter General: Alert, Oriented HEENT: Pupils Equal, Mucous Membr. Moist/[place] Neck: Supple, Trachea Midline Lungs: Clear to Auscultation, Normal Respiratory Effort Cardiovascular: Regular Rate, Irregular Rhythm GI/Abdominal Exam: Normal Bowel Sounds, Soft, Non-Tender Back Exam: Normal Inspection Extremities: Non-Tender, No Pedal Edema, Normal Capillary Refill Skin: Warm, Dry, Intact Neurological: No New Focal Deficit Psy/Mental Status: Alert, Normal Affect, Normal Mood - Problem List & Annotations (1) Urinary retention with incomplete bladder emptying SNOMED Code(s): 285646769 Code(s): R33.9 - RETENTION OF URINE, UNSPECIFIED Status: Acute Priority: High Current Visit: Yes Annotation/Comment:: Wheat catheter, Flomax started 06-20-17 (2) Anemia SNOMED Code(s): 360314363 Code(s): D64.9 - ANEMIA, UNSPECIFIED Status: Acute Priority: Medium Current Visit: No Qualifiers: Anemia type: due to chronic kidney disease Annotation/Comment:: Will add lisinopril today. Lasix and HCTZ on hold. Metformin started at decrease dose. (3) Weakness SNOMED Code(s): 32478365 Code(s): R53.1 - WEAKNESS Status: Acute Priority: High Current Visit: No Annotation/Comment:: Continue with PT/OT for strengthening, exercise and use of stairs - Problem List Review Problem List Initiated/Reviewed/Updated: Yes - My Orders Last 24 Hours: My Active Orders 06/21/17 08:00 amLODIPine [Norvasc] 10 mg PO DAILY 06/22/17 08:00 Consult to Shop Tailor [CONS] Routine OT Evaluation and Treatment [CONS] Routine PT Evaluation and Treatment [CONS] Routine Lisinopril [Prinivil] 5 mg PO DAILY - Plan Plan:: Urinary retention: Wheat catheter, will attempt to d/c after 7 days with bladder training after 5 days. Flomax started,will increase in 5-7 days after starting. Anemia w chronic kidney function decrease: Labs as ordered Medications adjusted as ordered. Will use Ferrous sulfate to supplement prophylactically. Weakness: PT/OT to assist with strengthening and exercise. PT has steps to get into home.
[2017-06-22] MEDS: Tamsulosin 0.4 MG Cap.ER PO SCH (16:40)
[2017-06-22] MEDS: Aspirin 81 MG Tab.Chew PO SCH (19:54)
[2017-06-22] MEDS: Simvastatin 20 MG Tab PO SCH (19:58)
[2017-06-23] MEDS ORDERED: busPIRone 10 MG Tab ONE ×2 (07:42→19:31)
[2017-06-23] MEDS: metFORMIN 500 MG Tab PO SCH ×2 (07:48→17:07)
[2017-06-23] MEDS: busPIRone 15 MG Tab PO SCH ×2 (07:49→19:32)
[2017-06-23] MEDS: Levothyroxine 25 MCG Tab PO SCH (07:50)
[2017-06-23] MEDS: Metoprolol Tartrate 25 MG Tab PO SCH ×2 (07:50→19:33)
[2017-06-23] MEDS: Lisinopril 5 MG Tab PO SCH (07:51)
[2017-06-23] MEDS: Acetaminophen 650 MG Tab.ER PO SCH ×2 (07:51→19:33)
[2017-06-23] MEDS: Ferrous Sulfate 325 MG Tab PO SCH ×2 (07:51→17:07)
[2017-06-23] MEDS: amLODIPine 10 MG Tab PO SCH (07:51)
[2017-06-23] MEDS: Tamsulosin 0.4 MG Cap.ER PO SCH (12:54)
[2017-06-23] MEDS: Simvastatin 20 MG Tab PO SCH (19:33)
[2017-06-23] MEDS: Aspirin 81 MG Tab.Chew PO SCH (19:34)
[2017-06-24] MEDS ORDERED: busPIRone 10 MG Tab ONE ×2 (07:17→19:54)
[2017-06-24] MEDS: Levothyroxine 25 MCG Tab PO SCH (07:24)
[2017-06-24] MEDS: metFORMIN 500 MG Tab PO SCH ×2 (07:24→17:00)
[2017-06-24] MEDS: Lisinopril 5 MG Tab PO SCH (07:24)
[2017-06-24] MEDS: Acetaminophen 650 MG Tab.ER PO SCH ×2 (07:25→19:57)
[2017-06-24] MEDS: Ferrous Sulfate 325 MG Tab PO SCH ×2 (07:25→17:00)
[2017-06-24] MEDS: amLODIPine 10 MG Tab PO SCH (07:25)
[2017-06-24] MEDS: busPIRone 15 MG Tab PO SCH ×2 (07:25→19:56)
[2017-06-24] MEDS: Metoprolol Tartrate 25 MG Tab PO SCH ×2 (07:46→19:56)
[2017-06-24] MEDS: Tamsulosin 0.4 MG Cap.ER PO SCH (12:24)
[2017-06-24] MEDS: Simvastatin 20 MG Tab PO SCH (19:56)
[2017-06-24] MEDS: Aspirin 81 MG Tab.Chew PO SCH (19:57)
[2017-06-25] MEDS: Levothyroxine 25 MCG Tab PO SCH (06:46)
[2017-06-25] MEDS: Lisinopril 5 MG Tab PO SCH (07:41)
[2017-06-25] MEDS: amLODIPine 10 MG Tab PO SCH (07:41)
[2017-06-25] MEDS: Acetaminophen 650 MG Tab.ER PO SCH ×2 (07:41→20:31)
[2017-06-25] MEDS: metFORMIN 500 MG Tab PO SCH ×2 (07:42→20:27)
[2017-06-25] MEDS: Ferrous Sulfate 325 MG Tab PO SCH ×2 (07:42→20:27)
[2017-06-25] MEDS: Metoprolol Tartrate 25 MG Tab PO SCH ×2 (07:43→20:31)
[2017-06-25] MEDS ORDERED: busPIRone 10 MG Tab ONE ×2 (18:25→18:27)
[2017-06-25] MEDS: busPIRone 15 MG Tab PO SCH ×2 (20:26→20:32)
[2017-06-25] MEDS: Tamsulosin 0.4 MG Cap.ER PO SCH (20:26)
[2017-06-25] MEDS: Aspirin 81 MG Tab.Chew PO SCH (20:30)
[2017-06-25] MEDS: Simvastatin 20 MG Tab PO SCH (20:31)
[2017-06-26] MEDS: Levothyroxine 25 MCG Tab PO SCH (07:00)
[2017-06-26] MEDS: amLODIPine 10 MG Tab PO SCH (08:18)
[2017-06-26] MEDS: Acetaminophen 650 MG Tab.ER PO SCH ×2 (08:18→19:57)
[2017-06-26] MEDS: Metoprolol Tartrate 25 MG Tab PO SCH ×2 (08:18→19:57)
[2017-06-26] MEDS: Lisinopril 5 MG Tab PO SCH (08:19)
[2017-06-26] MEDS: metFORMIN 500 MG Tab PO SCH ×2 (08:19→16:55)
[2017-06-26] MEDS: Ferrous Sulfate 325 MG Tab PO SCH ×2 (08:19→16:55)
[2017-06-26] MEDS: busPIRone 10 MG Tab PO SCH ×2 (08:19→19:58)
[2017-06-26] MEDS: Tamsulosin 0.4 MG Cap.ER PO SCH (11:26)
[2017-06-26] MEDS: Aspirin 81 MG Tab.Chew PO SCH (19:57)
[2017-06-26] MEDS: Simvastatin 20 MG Tab PO SCH (19:58)
[2017-06-27] MEDS: Levothyroxine 25 MCG Tab PO SCH (06:40)
[2017-06-27] MEDS: Tamsulosin 0.4 MG Cap.ER PO SCH (07:21)
[2017-06-27] MEDS: Ferrous Sulfate 325 MG Tab PO SCH ×2 (07:21→19:53)
[2017-06-27] MEDS: Acetaminophen 650 MG Tab.ER PO SCH ×2 (07:21→19:53)
[2017-06-27] MEDS: busPIRone 10 MG Tab PO SCH ×2 (07:22→19:54)
[2017-06-27] MEDS: amLODIPine 10 MG Tab PO SCH (07:22)
[2017-06-27] MEDS: Metoprolol Tartrate 25 MG Tab PO SCH ×2 (07:23→19:55)
[2017-06-27] MEDS: Lisinopril 5 MG Tab PO SCH (07:23)
[2017-06-27] MEDS: metFORMIN 500 MG Tab PO SCH ×2 (07:23→19:54)
[2017-06-27] MEDS: Aspirin 81 MG Tab.Chew PO SCH (19:53)
[2017-06-27] MEDS: Simvastatin 20 MG Tab PO SCH (19:54)
[2017-06-27] MEDS: Docusate Sodium 100 MG Cap PO SCH (20:08)
[2017-06-28] MEDS: Levothyroxine 25 MCG Tab PO SCH ×2 (05:57→07:06)
[2017-06-28] MEDS: Lisinopril 5 MG Tab PO SCH (07:34)
[2017-06-28] MEDS: Docusate Sodium 100 MG Cap PO SCH ×2 (07:35→19:18)
[2017-06-28] MEDS: Tamsulosin 0.4 MG Cap.ER PO SCH (07:35)
[2017-06-28] MEDS: Acetaminophen 650 MG Tab.ER PO SCH ×2 (07:35→19:17)
[2017-06-28] MEDS: metFORMIN 500 MG Tab PO SCH ×2 (07:36→17:19)
[2017-06-28] MEDS: amLODIPine 10 MG Tab PO SCH (07:36)
[2017-06-28] MEDS: busPIRone 10 MG Tab PO SCH ×2 (07:37→19:19)
[2017-06-28] MEDS: Metoprolol Tartrate 25 MG Tab PO SCH ×2 (07:37→19:17)
[2017-06-28] MEDS: Ferrous Sulfate 325 MG Tab PO SCH ×2 (07:37→17:19)
[2017-06-28] MEDS: Aspirin 81 MG Tab.Chew PO SCH (19:18)
[2017-06-28] MEDS: Simvastatin 20 MG Tab PO SCH (19:18)
[2017-06-29] MEDS: Levothyroxine 25 MCG Tab PO SCH (06:43)
[2017-06-29] MEDS: Ferrous Sulfate 325 MG Tab PO SCH ×2 (08:06→18:12)
[2017-06-29] MEDS: Lisinopril 5 MG Tab PO SCH (08:06)
[2017-06-29] MEDS: metFORMIN 500 MG Tab PO SCH ×2 (08:07→18:11)
[2017-06-29] MEDS: amLODIPine 10 MG Tab PO SCH (08:08)
[2017-06-29] MEDS: Metoprolol Tartrate 25 MG Tab PO SCH ×2 (08:08→20:04)
[2017-06-29] MEDS: busPIRone 10 MG Tab PO SCH ×2 (08:08→20:05)
[2017-06-29] MEDS: Acetaminophen 650 MG Tab.ER PO SCH ×2 (08:09→20:04)
[2017-06-29] MEDS: Tamsulosin 0.4 MG Cap.ER PO SCH ×2 (08:09→14:05)
[2017-06-29] MEDS: Docusate Sodium 100 MG Cap PO SCH ×2 (08:10→20:04)
[2017-06-29] MEDS ORDERED: Menthol/Zinc Oxide Ointment 113 GM Tube TOP ONE (12:25)
[2017-06-29] MEDS: Simvastatin 20 MG Tab PO SCH (20:05)
[2017-06-29] MEDS: Finasteride 5 MG Tab PO SCH (20:05)
[2017-06-29] MEDS: Aspirin 81 MG Tab.Chew PO SCH (20:05)
[2017-06-30] MEDS: Levothyroxine 25 MCG Tab PO SCH (07:31)
[2017-06-30] MEDS: busPIRone 10 MG Tab PO SCH ×2 (07:32→19:28)
[2017-06-30] MEDS: Docusate Sodium 100 MG Cap PO SCH ×2 (07:32→19:27)
[2017-06-30] MEDS: metFORMIN 500 MG Tab PO SCH ×2 (07:33→17:09)
[2017-06-30] MEDS: Ferrous Sulfate 325 MG Tab PO SCH ×2 (07:33→17:09)
[2017-06-30] MEDS: Lisinopril 5 MG Tab PO SCH (07:38)
[2017-06-30] MEDS: amLODIPine 10 MG Tab PO SCH (07:38)
[2017-06-30] MEDS: Metoprolol Tartrate 25 MG Tab PO SCH ×2 (07:38→19:27)
[2017-06-30] MEDS: Acetaminophen 650 MG Tab.ER PO SCH ×2 (10:16→19:27)
[2017-06-30] MEDS: Tamsulosin 0.4 MG Cap.ER PO SCH (10:16)
[2017-06-30] MEDS: Finasteride 5 MG Tab PO SCH (19:27)
[2017-06-30] MEDS: Simvastatin 20 MG Tab PO SCH (19:27)
[2017-06-30] MEDS: Aspirin 81 MG Tab.Chew PO SCH (19:27)
[2017-07-01] MEDS: Levothyroxine 25 MCG Tab PO SCH (06:48)
[2017-07-01] MEDS: Lisinopril 5 MG Tab PO SCH (08:22)
[2017-07-01] MEDS: Docusate Sodium 100 MG Cap PO SCH ×2 (08:23→19:50)
[2017-07-01] MEDS: Acetaminophen 650 MG Tab.ER PO SCH ×2 (08:23→19:50)
[2017-07-01] MEDS: amLODIPine 10 MG Tab PO SCH (08:23)
[2017-07-01] MEDS: Metoprolol Tartrate 25 MG Tab PO SCH ×2 (08:23→19:50)
[2017-07-01] MEDS: Ferrous Sulfate 325 MG Tab PO SCH ×2 (08:23→16:55)
[2017-07-01] MEDS: busPIRone 10 MG Tab PO SCH ×2 (08:24→19:51)
[2017-07-01] MEDS: metFORMIN 500 MG Tab PO SCH ×2 (08:24→16:55)
[2017-07-01] MEDS: Tamsulosin 0.4 MG Cap.ER PO SCH (09:53)
[2017-07-01] MEDS: Aspirin 81 MG Tab.Chew PO SCH (19:50)
[2017-07-01] MEDS: Finasteride 5 MG Tab PO SCH (19:51)
[2017-07-01] MEDS: Simvastatin 20 MG Tab PO SCH (19:51)
[2017-07-02] MEDS: Levothyroxine 25 MCG Tab PO SCH (06:53)
[2017-07-02] MEDS: Docusate Sodium 100 MG Cap PO SCH ×2 (07:34→19:48)
[2017-07-02] MEDS: Acetaminophen 650 MG Tab.ER PO SCH ×2 (07:34→19:47)
[2017-07-02] MEDS: busPIRone 10 MG Tab PO SCH ×2 (07:34→19:47)
[2017-07-02] MEDS: Ferrous Sulfate 325 MG Tab PO SCH ×2 (07:34→17:11)
[2017-07-02] MEDS: Lisinopril 5 MG Tab PO SCH (07:35)
[2017-07-02] MEDS: metFORMIN 500 MG Tab PO SCH ×2 (07:35→17:11)
[2017-07-02] MEDS: amLODIPine 10 MG Tab PO SCH (07:35)
[2017-07-02] MEDS: Metoprolol Tartrate 25 MG Tab PO SCH ×2 (07:35→19:48)
[2017-07-02] MEDS: Tamsulosin 0.4 MG Cap.ER PO SCH (10:27)
[2017-07-02] MEDS: Simvastatin 20 MG Tab PO SCH (19:47)
[2017-07-02] MEDS: Finasteride 5 MG Tab PO SCH (19:47)
[2017-07-02] MEDS: Aspirin 81 MG Tab.Chew PO SCH (19:48)
[2017-07-03] MEDS: Levothyroxine 25 MCG Tab PO SCH (06:58)
[2017-07-03] MEDS ORDERED: Magnesium Hydroxide 400 MG/5 ML Susp 30 ML Cup PO PRN (07:17)
[2017-07-03] MEDS: busPIRone 10 MG Tab PO SCH ×2 (07:44→19:35)
[2017-07-03] MEDS: amLODIPine 10 MG Tab PO SCH (07:45)
[2017-07-03] MEDS: Docusate Sodium 100 MG Cap PO SCH ×2 (07:45→19:36)
[2017-07-03] MEDS: metFORMIN 500 MG Tab PO SCH ×2 (07:46→16:58)
[2017-07-03] MEDS: Acetaminophen 650 MG Tab.ER PO SCH ×2 (07:46→19:40)
[2017-07-03] MEDS: Lisinopril 5 MG Tab PO SCH (07:46)
[2017-07-03] MEDS: Metoprolol Tartrate 25 MG Tab PO SCH ×2 (07:46→19:36)
[2017-07-03] MEDS: Ferrous Sulfate 325 MG Tab PO SCH ×2 (07:46→16:58)
[2017-07-03] MEDS: Tamsulosin 0.4 MG Cap.ER PO SCH (10:30)
[2017-07-03] MEDS: Aspirin 81 MG Tab.Chew PO SCH (19:36)
[2017-07-03] MEDS: Finasteride 5 MG Tab PO SCH (19:40)
[2017-07-03] MEDS: Simvastatin 20 MG Tab PO SCH (19:40)
--- NOTE | 2017-07-03 22:10 | PCM.PN ---
- General Info Date of Service: 07/03/17 Admission Dx/Problem (Free Text): Urinary retention decreased kidney function Functional Status: Reports: Tolerating Diet, Ambulating - Review of Systems General: Reports: No Symptoms HEENT: Reports: No Symptoms Pulmonary: Reports: No Symptoms Cardiovascular: Reports: No Symptoms Gastrointestinal: Reports: Constipation Genitourinary: Reports: Retention Musculoskeletal: Reports: No Symptoms Skin: Reports: No Symptoms Neurological: Reports: No Symptoms Psychiatric: Reports: No Symptoms - Patient Data Vitals - Most Recent: Last Vital Signs Temp 97.8 F 07/03/17 08:00 Pulse 70 07/03/17 19:36 Resp 18 07/03/17 08:00 BP 124/65 07/03/17 19:36 Pulse Ox 95 07/03/17 08:00 Weight - Most Recent: 155 lb 8 oz I&O - Last 24 Hours: Intake & Output 07/03/17 07/03/17 07/03/17 06:59 14:59 22:59 Intake Total 240 1350 Output Total 950 2075 Balance -710 -725 Lab Results Last 24 Hours: Laboratory Results - last 24 hr 07/03/17 07/03/17 Range/Units 08:22 08:22 Hgb 11.0 L (13.0-18.0) g/dL Hct 34.3 L (40.0-54.0) % Sodium 141 (136-145) mmol/L Potassium 4.9 (3.5-5.1) mmol/L Chloride 106 (98-107) mmol/L Carbon Dioxide 24.0 (21.0-32.0) mmol/L Anion Gap 15.9 H (5.0-15.0) mmol/L BUN 60 H* D (8-26) mg/dL Creatinine 1.87 H (0.70-1.30) mg/dL Est Cr Clr Drug Dosing 25.59 mL/min Estimated GFR (MDRD) 34 L (>60) MLS/MIN BUN/Creatinine Ratio 32.1 H (6-25) Glucose 112 H (74-100) mg/dL Calcium 9.1 (8.5-10.1) mg/dL Med Orders - Current: Current Medications Acetaminophen (Tylenol Arthritis Pain) 650 mg PO BID [facility] Last Admin: 07/03/17 19:40 Dose: 650 mg Amlodipine Besylate (Norvasc) 10 mg PO DAILY [facility] Last Admin: 07/03/17 07:45 Dose: 10 mg Aspirin (Aspirin) 81 mg PO BEDTIME [facility] Last Admin: 07/03/17 19:36 Dose: 81 mg Buspirone HCl (Buspar) 15 mg PO BID [facility] Last Admin: 07/03/17 19:35 Dose: 15 mg Docusate Sodium (Colace) 100 mg PO BID [facility] Last Admin: 07/03/17 19:36 Dose: 100 mg Ferrous Sulfate (Ferrous Sulfate) 325 mg PO BIDMEALS [facility] Last Admin: 07/03/17 16:58 Dose: 325 mg Finasteride (Proscar) 5 mg PO BEDTIME [facility] Last Admin: 07/03/17 19:40 Dose: 5 mg Levothyroxine Sodium (Levothyroxine) 25 mcg PO ACBREAKFAST [facility] Last Admin: 07/03/17 06:58 Dose: 25 mcg Lisinopril (Prinivil) 5 mg PO DAILY [facility] Last Admin: 07/03/17 07:46 Dose: 5 mg Magnesium Hydroxide (Milk Of Magnesia) 30 ml PO DAILY PRN PRN Reason: Constipation Last Admin: 07/03/17 07:33 Dose: 30 ml Metformin HCl (Glucophage) 250 mg PO BIDMEALS [facility] Last Admin: 07/03/17 16:58 Dose: 250 mg Metoprolol Tartrate (Lopressor) 25 mg PO BID [facility] Last Admin: 07/03/17 19:36 Dose: 25 mg Simvastatin (Zocor) 20 mg PO BEDTIME [facility] Last Admin: 07/03/17 19:40 Dose: 20 mg Tamsulosin HCl (Flomax) 0.4 mg PO PCBREAKFAST [facility] Last Admin: 07/03/17 10:30 Dose: 0.4 mg Discontinued Medications Buspirone HCl (Buspar) 15 mg PO BID [facility] Last Admin: 06/25/17 20:32 Dose: Not Given Buspirone HCl (Buspar) Confirm Administered Dose 20 mg .ROUTE .STK-MED ONE Stop: 06/20/17 20:01 Last Admin: 06/20/17 20:18 Dose: Not Given Buspirone HCl (Buspar) Confirm Administered Dose 20 mg .ROUTE .STK-MED ONE Stop: 06/21/17 08:03 Last Admin: 06/21/17 08:35 Dose: Not Given Buspirone HCl (Buspar) Confirm Administered Dose 20 mg .ROUTE .ST-MED ONE Stop: 06/21/17 19:38 Last Admin: 06/21/17 19:46 Dose: Not Given Buspirone HCl (Buspar) Confirm Administered Dose 20 mg .ROUTE .STK-MED ONE Stop: 06/22/17 07:20 Last Admin: 06/22/17 08:12 Dose: Not Given Buspirone HCl (Buspar) Confirm Administered Dose 20 mg .ROUTE .STK-MED ONE Stop: 06/22/17 19:47 Last Admin: 06/22/17 19:53 Dose: Not Given Buspirone HCl (Buspar) Confirm Administered Dose 20 mg .ROUTE .[facility]-MED ONE Stop: 06/23/17 07:43 Last Admin: 06/23/17 10:54 Dose: Not Given Buspirone HCl (Buspar) Confirm Administered Dose 20 mg .ROUTE .ST-MED ONE Stop: 06/23/17 19:32 Last Admin: 06/24/17 08:39 Dose: Not Given Buspirone HCl (Buspar) Confirm Administered Dose 20 mg .ROUTE .ST-MED ONE Stop: 06/24/17 07:18 Last Admin: 06/24/17 08:39 Dose: Not Given Buspirone HCl (Buspar) Confirm Administered Dose 20 mg .ROUTE .[facility]-MED ONE Stop: 06/24/17 19:55 Last Admin: 06/25/17 07:44 Dose: Not Given Buspirone HCl (Buspar) Confirm Administered Dose 20 mg .ROUTE .[facility]-MED ONE Stop: 06/25/17 18:26 Last Admin: 06/25/17 20:29 Dose: Not Given Buspirone HCl (Buspar) Confirm Administered Dose 10 mg .ROUTE .STK-MED ONE Stop: 06/25/17 18:28 Last Admin: 06/25/17 20:29 Dose: Not Given Calamine/Phenol (Calmoseptine) Confirm Administered Dose 113 gm TOP .STK-MED ONE Stop: 06/29/17 12:26 Last Admin: 06/29/17 14:06 Dose: 1 applic Tamsulosin HCl (Flomax) 0.4 mg PO ACLUNCH [facility] Last Admin: 06/26/17 11:26 Dose: 0.4 mg Tamsulosin HCl (Flomax) Confirm Administered Dose 0.4 mg .ROUTE .STK-MED ONE Stop: 06/21/17 13:02 Last Admin: 06/21/17 13:09 Dose: Not Given Tamsulosin HCl (Flomax) 0.4 mg PO DAILY@0800 [facility] Last Admin: 06/28/17 07:35 Dose: 0.4 mg Tamsulosin HCl (Flomax) 0.8 mg PO PCBREAKFAST [facility] Last Admin: 07/02/17 10:27 Dose: 0.8 mg - Exam General: Alert, Oriented HEENT: Mucous Membr. Moist/[place] Neck: Supple, Trachea Midline Lungs: Clear to Auscultation, Normal Respiratory Effort Cardiovascular: Regular Rate, Regular Rhythm GI/Abdominal Exam: Normal Bowel Sounds, Soft, Non-Tender Back Exam: Normal Inspection Extremities: Normal Inspection, Normal Range of Motion, Non-Tender, Normal Capillary Refill Skin: Warm, Dry Neurological: Strength Equal Bilateral Psy/Mental Status: Alert, Normal Affect, Normal Mood - Problem List & Annotations (1) Urinary retention with incomplete bladder emptying SNOMED Code(s): 135408414 Code(s): R33.9 - RETENTION OF URINE, UNSPECIFIED Status: Acute Priority: High Current Visit: Yes Annotation/Comment:: 07-03-17 restart Lee catheter , Flomax dose decrease today. Started Finasteride this week. (2) Anemia SNOMED Code(s): 516745739 Code(s): D64.9 - ANEMIA, UNSPECIFIED Status: Acute Priority: Medium Current Visit: No Qualifiers: Anemia type: due to chronic kidney disease Annotation/Comment:: 07-03-17 with decrease in kidney function will continue with lisinopril. Lasix and HCTZ on hold. Continue with ferrous sulfate bid. (3) Weakness SNOMED Code(s): 91153482 Code(s): R53.1 - WEAKNESS Status: Acute Priority: High Current Visit: No Annotation/Comment:: Continue with PT/OT for strengthening, exercise and use of stairs - Problem List Review Problem List Initiated/Reviewed/Updated: Yes - My Orders Last 24 Hours: My Active Orders 07/03/17 07:17 Magnesium Hydroxide [Milk of Magnesia] 30 ml PO DAILY PRN 07/03/17 10:00 Tamsulosin [Flomax] 0.4 mg PO PCBREAKFAST - Plan Plan:: 07-04-17 Urinary retention: Lee catheter restarted today with urine retention of 400-600 cc post void Flomax and Finasteride Urology consult next week. Teach pt to empty Lee catheter bag and aseptic care for indwelling Lee catheter. Anemia w chronic kidney function decrease: Labs as ordered Medications adjusted as ordered. Will use Ferrous sulfate to supplement. Weakness: PT/OT to assist with strengthening and exercise. PT has steps to get into home. Diabetes: Daily blood sugar Metformin as ordered. Dose held and then decreased to 250mg po bid. May need to D/C if continue decrease in kidney function.
[2017-07-04] MEDS: Levothyroxine 25 MCG Tab PO SCH (06:13)
[2017-07-04] MEDS: Acetaminophen 650 MG Tab.ER PO SCH ×2 (07:48→19:13)
[2017-07-04] MEDS: Ferrous Sulfate 325 MG Tab PO SCH ×2 (07:48→17:26)
[2017-07-04] MEDS: amLODIPine 10 MG Tab PO SCH (07:48)
[2017-07-04] MEDS: busPIRone 10 MG Tab PO SCH ×2 (07:50→19:14)
[2017-07-04] MEDS: Metoprolol Tartrate 25 MG Tab PO SCH ×2 (07:51→19:15)
[2017-07-04] MEDS: Polyethylene Glycol 3350 Powder 17 GM Packet PO SCH (07:51)
[2017-07-04] MEDS: Lisinopril 5 MG Tab PO SCH (07:51)
[2017-07-04] MEDS: Docusate Sodium 100 MG Cap PO SCH ×2 (07:51→19:13)
[2017-07-04] MEDS: Tamsulosin 0.4 MG Cap.ER PO SCH (10:44)
[2017-07-04] MEDS: Simvastatin 20 MG Tab PO SCH (19:14)
[2017-07-04] MEDS: Finasteride 5 MG Tab PO SCH (19:14)
[2017-07-04] MEDS: Aspirin 81 MG Tab.Chew PO SCH (19:14)
[2017-07-05] MEDS: Levothyroxine 25 MCG Tab PO SCH (06:07)
[2017-07-05] MEDS: Ferrous Sulfate 325 MG Tab PO SCH ×2 (07:47→17:11)
[2017-07-05] MEDS: Lisinopril 5 MG Tab PO SCH (07:47)
[2017-07-05] MEDS: Docusate Sodium 100 MG Cap PO SCH ×2 (07:47→19:25)
[2017-07-05] MEDS: Polyethylene Glycol 3350 Powder 17 GM Packet PO SCH (07:47)
[2017-07-05] MEDS: Metoprolol Tartrate 25 MG Tab PO SCH ×2 (07:47→19:24)
[2017-07-05] MEDS: amLODIPine 10 MG Tab PO SCH (07:47)
[2017-07-05] MEDS: Acetaminophen 650 MG Tab.ER PO SCH ×2 (07:47→19:25)
[2017-07-05] MEDS: busPIRone 10 MG Tab PO SCH ×2 (07:47→20:28)
[2017-07-05] MEDS: Tamsulosin 0.4 MG Cap.ER PO SCH (10:29)
[2017-07-05] MEDS: Finasteride 5 MG Tab PO SCH (19:25)
[2017-07-05] MEDS: Aspirin 81 MG Tab.Chew PO SCH (19:25)
[2017-07-05] MEDS: Simvastatin 20 MG Tab PO SCH (19:25)
[2017-07-06] MEDS: Levothyroxine 25 MCG Tab PO SCH (05:59)
[2017-07-06] MEDS: busPIRone 10 MG Tab PO SCH ×2 (07:38→19:40)
[2017-07-06] MEDS: Docusate Sodium 100 MG Cap PO SCH ×2 (07:39→19:41)
[2017-07-06] MEDS: Ferrous Sulfate 325 MG Tab PO SCH ×2 (07:39→17:49)
[2017-07-06] MEDS: Metoprolol Tartrate 25 MG Tab PO SCH ×2 (07:40→19:41)
[2017-07-06] MEDS: Polyethylene Glycol 3350 Powder 17 GM Packet PO SCH (07:40)
[2017-07-06] MEDS: amLODIPine 10 MG Tab PO SCH (07:41)
[2017-07-06] MEDS: Lisinopril 5 MG Tab PO SCH (07:42)
[2017-07-06] MEDS: Acetaminophen 650 MG Tab.ER PO SCH ×2 (07:43→19:42)
[2017-07-06] MEDS: Tamsulosin 0.4 MG Cap.ER PO SCH (10:22)
[2017-07-06] MEDS: Aspirin 81 MG Tab.Chew PO SCH (19:39)
[2017-07-06] MEDS: Simvastatin 20 MG Tab PO SCH (19:42)
[2017-07-06] MEDS: Finasteride 5 MG Tab PO SCH (19:42)
[2017-07-07] MEDS: Levothyroxine 25 MCG Tab PO SCH (06:39)
[2017-07-07] MEDS: Docusate Sodium 100 MG Cap PO SCH ×2 (08:05→19:40)
[2017-07-07] MEDS: Polyethylene Glycol 3350 Powder 17 GM Packet PO SCH (08:05)
[2017-07-07] MEDS: Ferrous Sulfate 325 MG Tab PO SCH ×2 (08:06→17:12)
[2017-07-07] MEDS: Lisinopril 5 MG Tab PO SCH (08:06)
[2017-07-07] MEDS: Metoprolol Tartrate 25 MG Tab PO SCH ×2 (08:06→19:40)
[2017-07-07] MEDS: Acetaminophen 650 MG Tab.ER PO SCH ×2 (08:06→19:40)
[2017-07-07] MEDS: amLODIPine 10 MG Tab PO SCH (08:07)
[2017-07-07] MEDS: busPIRone 10 MG Tab PO SCH ×2 (08:07→19:39)
--- NOTE | 2017-07-07 09:27 | PCM.PN ---
- General Info Date of Service: 07/07/17 Admission Dx/Problem (Free Text): Urinary retention decreased kidney function Functional Status: Reports: Tolerating Diet, Ambulating - Review of Systems General: Reports: No Symptoms Pulmonary: Reports: No Symptoms Cardiovascular: Reports: No Symptoms Gastrointestinal: Reports: No Symptoms Genitourinary: Reports: Retention, Other (wheat catheter, learning to care for catheter, independent with emptying catheter and cleaning meatus) Musculoskeletal: Reports: Hand Pain (left) Skin: Reports: No Symptoms Neurological: Reports: No Symptoms Psychiatric: Reports: Other (nervous about going home and wanting to get his medications ordered and filled before discharge. States he has a retired nurse in community that he thinks will set-up his medications for him) - Patient Data Vitals - Most Recent: Last Vital Signs Temp 98.9 F 07/06/17 07:53 Pulse 63 07/07/17 08:06 Resp 16 07/06/17 07:53 BP 161/54 H 07/07/17 08:06 Pulse Ox 97 07/06/17 07:53 Weight - Most Recent: 156 lb 0.6 oz I&O - Last 24 Hours: Intake & Output 07/06/17 07/07/17 07/07/17 22:59 06:59 14:59 Intake Total 900 270 Output Total 700 1375 Balance 200 -1105 Lab Results Last 24 Hours: Laboratory Results - last 24 hr 07/06/17 07/07/17 Range/Units 06:23 07:11 POC Glucose 112 H 106 (74-110) mg/dL Med Orders - Current: Current Medications Acetaminophen (Tylenol Arthritis Pain) 650 mg PO BID [facility] Last Admin: 07/07/17 08:06 Dose: 650 mg Amlodipine Besylate (Norvasc) 10 mg PO DAILY [facility] Last Admin: 07/07/17 08:07 Dose: 10 mg Aspirin (Aspirin) 81 mg PO BEDTIME [facility] Last Admin: 07/06/17 19:39 Dose: 81 mg Buspirone HCl (Buspar) 15 mg PO BID [facility] Last Admin: 07/07/17 08:07 Dose: 15 mg Docusate Sodium (Colace) 100 mg PO BID [facility] Last Admin: 07/07/17 08:05 Dose: 100 mg Ferrous Sulfate (Ferrous Sulfate) 325 mg PO BIDMEALS [facility] Last Admin: 07/07/17 08:06 Dose: 325 mg Finasteride (Proscar) 5 mg PO BEDTIME [facility] Last Admin: 07/06/17 19:42 Dose: 5 mg Levothyroxine Sodium (Levothyroxine) 25 mcg PO ACBREAKFAST [facility] Last Admin: 07/07/17 06:39 Dose: 25 mcg Lisinopril (Prinivil) 5 mg PO DAILY [facility] Last Admin: 07/07/17 08:06 Dose: 5 mg Magnesium Hydroxide (Milk Of Magnesia) 30 ml PO DAILY PRN PRN Reason: Constipation Last Admin: 07/03/17 07:33 Dose: 30 ml Metoprolol Tartrate (Lopressor) 25 mg PO BID [facility] Last Admin: 07/07/17 08:06 Dose: 25 mg Polyethylene Glycol (Miralax) 17 gm PO DAILY [facility] Last Admin: 07/07/17 08:05 Dose: 17 gm Simvastatin (Zocor) 20 mg PO BEDTIME [facility] Last Admin: 07/06/17 19:42 Dose: 20 mg Tamsulosin HCl (Flomax) 0.4 mg PO PCBREAKFAST [facility] Last Admin: 07/06/17 10:22 Dose: 0.4 mg Discontinued Medications Buspirone HCl (Buspar) 15 mg PO BID [facility] Last Admin: 06/25/17 20:32 Dose: Not Given Buspirone HCl (Buspar) Confirm Administered Dose 20 mg .ROUTE .STK-MED ONE Stop: 06/20/17 20:01 Last Admin: 06/20/17 20:18 Dose: Not Given Buspirone HCl (Buspar) Confirm Administered Dose 20 mg .ROUTE .STK-MED ONE Stop: 06/21/17 08:03 Last Admin: 06/21/17 08:35 Dose: Not Given Buspirone HCl (Buspar) Confirm Administered Dose 20 mg .ROUTE .STK-MED ONE Stop: 06/21/17 19:38 Last Admin: 06/21/17 19:46 Dose: Not Given Buspirone HCl (Buspar) Confirm Administered Dose 20 mg .ROUTE .STK-MED ONE Stop: 06/22/17 07:20 Last Admin: 06/22/17 08:12 Dose: Not Given Buspirone HCl (Buspar) Confirm Administered Dose 20 mg .ROUTE .STK-MED ONE Stop: 06/22/17 19:47 Last Admin: 06/22/17 19:53 Dose: Not Given Buspirone HCl (Buspar) Confirm Administered Dose 20 mg .ROUTE .STK-MED ONE Stop: 06/23/17 07:43 Last Admin: 06/23/17 10:54 Dose: Not Given Buspirone HCl (Buspar) Confirm Administered Dose 20 mg .ROUTE .STK-MED ONE Stop: 06/23/17 19:32 Last Admin: 06/24/17 08:39 Dose: Not Given Buspirone HCl (Buspar) Confirm Administered Dose 20 mg .ROUTE .STK-MED ONE Stop: 06/24/17 07:18 Last Admin: 06/24/17 08:39 Dose: Not Given Buspirone HCl (Buspar) Confirm Administered Dose 20 mg .ROUTE .STK-MED ONE Stop: 06/24/17 19:55 Last Admin: 06/25/17 07:44 Dose: Not Given Buspirone HCl (Buspar) Confirm Administered Dose 20 mg .ROUTE .STK-MED ONE Stop: 06/25/17 18:26 Last Admin: 06/25/17 20:29 Dose: Not Given Buspirone HCl (Buspar) Confirm Administered Dose 10 mg .ROUTE .STK-MED ONE Stop: 06/25/17 18:28 Last Admin: 06/25/17 20:29 Dose: Not Given Calamine/Phenol (Calmoseptine) Confirm Administered Dose 113 gm TOP .STK-MED ONE Stop: 06/29/17 12:26 Last Admin: 06/29/17 14:06 Dose: 1 applic Metformin HCl (Glucophage) 250 mg PO BIDMEALS [facility] Last Admin: 07/03/17 16:58 Dose: 250 mg Tamsulosin HCl (Flomax) 0.4 mg PO ACLUNCH [facility] Last Admin: 06/26/17 11:26 Dose: 0.4 mg Tamsulosin HCl (Flomax) Confirm Administered Dose 0.4 mg .ROUTE .STK-MED ONE Stop: 06/21/17 13:02 Last Admin: 06/21/17 13:09 Dose: Not Given Tamsulosin HCl (Flomax) 0.4 mg PO DAILY@0800 [facility] Last Admin: 06/28/17 07:35 Dose: 0.4 mg Tamsulosin HCl (Flomax) 0.8 mg PO PCBREAKFAST [facility] Last Admin: 07/02/17 10:27 Dose: 0.8 mg - Exam Quality Assessment: Urine Catheter General: Alert, Oriented, Cooperative, No Acute Distress HEENT: Mucous Membr. Moist/[place] Neck: Supple, Trachea Midline. No: Lymphadenopathy Lungs: Clear to Auscultation, Normal Respiratory Effort Cardiovascular: Regular Rate, Irregular Rhythm GI/Abdominal Exam: Normal Bowel Sounds, Soft, Non-Tender Extremities: Normal Inspection, No Pedal Edema Skin: Warm, Dry, Intact Neurological: No New Focal Deficit Psy/Mental Status: Alert, Normal Affect, Normal Mood - Problem List & Annotations (1) Urinary retention with incomplete bladder emptying SNOMED Code(s): 649828447 Code(s): R33.9 - RETENTION OF URINE, UNSPECIFIED Status: Acute Priority: High Current Visit: Yes Annotation/Comment:: 07-07-17 Wheat catheter continues with same dose Flomax and continue with Finasteride. Pt has consult with urologist on 07-09-17 in [place]. Plan to discharge pt 07-09-17 am and he will continue with wheat catheter care at home. (2) Anemia SNOMED Code(s): 548897871 Code(s): D64.9 - ANEMIA, UNSPECIFIED Status: Acute Priority: Medium Current Visit: No Qualifiers: Anemia type: due to chronic kidney disease Annotation/Comment:: 07-07-17 Continue with Lasix and HCTZ on hold for discharge. Continue with ferrous sulfate bid. F/U with PCP next week. (3) Weakness SNOMED Code(s): 95747509 Code(s): R53.1 - WEAKNESS Status: Acute Priority: High Current Visit: No Annotation/Comment:: 07-07-17 Continue with PT/OT for strengthening, exercise and use of stairs, use of wheat catheter with changing clothes. - Problem List Review Problem List Initiated/Reviewed/Updated: Yes - My Orders Last 24 Hours: My Active Orders 07/08/17 07:00 BASIC METABOLIC PANEL,BMP [CHEM] Routine - Plan Plan:: 07-07-17 Urinary retention: Wheat catheter Education continues. Flomax and Finasteride Urology consult 07-09-17 Teach pt to empty Wheat catheter bag and aseptic care for indwelling Wheat catheter. Anemia w chronic kidney function decrease: Labs as ordered Medications adjusted as ordered. Will use Ferrous sulfate to supplement. Holding lasix, HCTZ, and metformin. Weakness: PT/OT to assist with strengthening and exercise. PT has steps to get into home. Diabetes: Daily blood sugar Metformin is held with decrease in kidney function. Discharge this 07-09-17 with Lasix, Metformin and HCTZ on hold. New medication for urinary retention of Flomax and Finasteride. Wheat catheter with bedside drainage bag. Medications to be ordered from [facility] and available for pt tomorrow. Urology consult 07-09-17. Pt to F/U with PCP next week. Discussed option of [facility]/assisted living and pt would like to try it at home first. Pt will need support in the home with his medications and meals, laundry , wheat catheter maintenance and ARNALD[employer] hose.
[2017-07-07] MEDS: Tamsulosin 0.4 MG Cap.ER PO SCH (10:07)
[2017-07-07] MEDS: Finasteride 5 MG Tab PO SCH (19:40)
[2017-07-07] MEDS: Simvastatin 20 MG Tab PO SCH (19:40)
[2017-07-07] MEDS: Aspirin 81 MG Tab.Chew PO SCH (19:40)
[2017-07-08] MEDS: Levothyroxine 25 MCG Tab PO SCH (06:18)
[2017-07-08] MEDS: Ferrous Sulfate 325 MG Tab PO SCH ×2 (07:29→17:03)
[2017-07-08] MEDS: Docusate Sodium 100 MG Cap PO SCH ×2 (07:29→21:30)
[2017-07-08] MEDS: Acetaminophen 650 MG Tab.ER PO SCH ×2 (07:29→20:24)
[2017-07-08] MEDS: Polyethylene Glycol 3350 Powder 17 GM Packet PO SCH (07:30)
[2017-07-08] MEDS: busPIRone 10 MG Tab PO SCH ×2 (07:30→20:23)
[2017-07-08] MEDS: Metoprolol Tartrate 25 MG Tab PO SCH ×2 (07:30→20:24)
[2017-07-08] MEDS: Lisinopril 5 MG Tab PO SCH (07:30)
[2017-07-08] MEDS: amLODIPine 10 MG Tab PO SCH (07:30)
[2017-07-08] MEDS: Tamsulosin 0.4 MG Cap.ER PO SCH (09:39)
[2017-07-08] MEDS: Finasteride 5 MG Tab PO SCH (20:24)
[2017-07-08] MEDS: Simvastatin 20 MG Tab PO SCH (20:24)
[2017-07-08] MEDS: Aspirin 81 MG Tab.Chew PO SCH (20:24)
[2017-07-09] MEDS: Levothyroxine 25 MCG Tab PO SCH (05:21)
[2017-07-09] MEDS: Metoprolol Tartrate 25 MG Tab PO SCH (06:01)
[2017-07-09] MEDS: Ferrous Sulfate 325 MG Tab PO SCH (06:01)
[2017-07-09] MEDS: Acetaminophen 650 MG Tab.ER PO SCH (06:01)
[2017-07-09] MEDS: busPIRone 10 MG Tab PO SCH (06:02)
[2017-07-09] MEDS: amLODIPine 10 MG Tab PO SCH (06:02)
[2017-07-09] MEDS: Lisinopril 5 MG Tab PO SCH (06:02)
[2017-07-09] MEDS: Tamsulosin 0.4 MG Cap.ER PO SCH (06:04)
[2017-07-09 06:30] VITALS: BP 155/66
--- NOTE | 2017-07-09 21:12 | PCM.DCSUM1 ---
Discharge Summary - Hospital Course Free Text/Narrative:: Pt discharged this am to care of niece. Rx for Medications were filled as ordered. Pt to have urology consult today. F/U with PCP next week. Pt continue to provide wheat catheter care at home. - Discharge Data Discharge Date: 07/09/17 Discharge Disposition: Home, Self-Care 01 Condition: Good - Discharge Diagnosis/Problem(s) (1) Urinary retention with incomplete bladder emptying SNOMED Code(s): 821973261 ICD Code: R33.9 - RETENTION OF URINE, UNSPECIFIED Status: Acute Priority : High Problem Details: 07-09-17 Wheat catheter continues with same dose Flomax and continue with Finasteride. Pt has consult with urologist today in [place]. Plan to discharge today and continue with wheat catheter at home. Pt education completed for catheter care at home (2) Anemia SNOMED Code(s): 826353862 ICD Code: D64.9 - ANEMIA, UNSPECIFIED Status: Acute Priority: Medium Problem Details: 07-09-17 Continue with Lasix and HCTZ on hold for discharge. Continue with ferrous sulfate bid. F/U with PCP next week. Qualifiers: Anemia type: due to chronic kidney disease (3) Weakness SNOMED Code(s): 69789867 ICD Code: R53.1 - WEAKNESS Status: Acute Priority: High Problem Details : 07-09-17 PT/OT goals obtained - Patient Summary/Data Consults: Consultations 06/22/17 08:00 Consult to Electric Stove Mechanic [CONS] Routine Comment: Physician Instructions: Quantity: OT Evaluation and Treatment [CONS] Routine Please Evaluate and Treat. OT Reason for Consult: weakness This query below is only for informational purposes and is not editable. PT Evaluation and Treatment [CONS] Routine Please Evaluate and Treat. PT Reason for Consult: weakness This query below is only for informational purposes and is not editable. - Patient Instructions Diet: Heart Healthy Diet, Diabetic Diet Activity: As Tolerated Driving: Do Not Drive Showering/Bathing: May Shower Notify Provider of: Fever, Increased Pain - Discharge Plan Prescriptions/Med Rec: Ferrous Sulfate 325 mg PO BIDMEALS #60 tablet Finasteride [Proscar] 5 mg PO BEDTIME #30 tablet Lisinopril [Prinivil] 5 mg PO DAILY #30 tablet Polyethylene Glycol 3350 [MiraLAX] 17 gm PO DAILY #1 bottle Home Medications: Home Meds Metoprolol Tartrate [Lopressor] 25 mg PO BID 11/06/14 [History] Simvastatin [Zocor] 20 mg PO BEDTIME 11/06/14 [History] amLODIPine Besylate [Amlodipine Besylate] 10 tab PO DAILY 11/06/14 [History] Aspirin [Nicki Chewable Aspirin] 81 mg PO BEDTIME 10/19/15 [History] Levothyroxine Sodium [Synthroid] 25 mcg PO DAILY 11/12/15 [History] busPIRone [Buspar] 15 mg PO BID 11/12/15 [History] Tamsulosin HCl [Flomax] 0.4 mg PO ACLUNCH 06/20/17 [History] Acetaminophen [Tylenol Arthritis Pain] 650 mg PO BID tab.er 07/07/17 [Rx] Docusate Sodium [Colace] 100 mg PO BID cap 07/07/17 [Rx] Ferrous Sulfate 325 mg PO BIDMEALS #60 tablet 07/07/17 [Rx] Finasteride [Proscar] 5 mg PO BEDTIME #30 tablet 07/07/17 [Rx] Lisinopril [Prinivil] 5 mg PO DAILY #30 tablet 07/07/17 [Rx] Magnesium Hydroxide [Milk of Magnesia] 30 ml PO DAILY PRN cup 07/07/17 [Rx] Polyethylene Glycol 3350 [MiraLAX] 17 gm PO DAILY #1 bottle 07/07/17 [Rx] Patient Handouts: Wheat Catheter Care, Adult, [id number], Acute Urinary Retention, Male, [id number] - General Info Date of Service: 07/09/17 Functional Status: Reports: Pain Controlled, Tolerating Diet, Ambulating - Review of Systems Genitourinary: Reports: Other (indwelling wheat catheter with bedside drainage bag) - Patient Data Vitals - Most Recent: Last Vital Signs Temp 98.2 F 07/08/17 07:24 Pulse 72 07/09/17 06:01 Resp 17 07/08/17 07:24 BP 155/66 H 07/09/17 06:02 Pulse Ox 54 L 07/08/17 07:24 Weight - Most Recent: 153 lb 12.8 oz I&O - Last 24 hours: Intake & Output 07/09/17 07/09/17 07/09/17 06:59 14:59 22:59 Intake Total 160 Output Total 500 Balance -340 Lab Results - Last 24 hrs: Laboratory Results - last 24 hr 07/09/17 Range/Units 04:58 POC Glucose 99 (74-110) mg/dL Med Orders - Current: Current Medications Discontinued Medications Acetaminophen (Tylenol Arthritis Pain) 650 mg PO BID [facility] Last Admin: 07/09/17 06:01 Dose: 650 mg Amlodipine Besylate (Norvasc) 10 mg PO DAILY [facility] Last Admin: 07/09/17 06:02 Dose: 10 mg Aspirin (Aspirin) 81 mg PO BEDTIME [facility] Last Admin: 07/08/17 20:24 Dose: 81 mg Buspirone HCl (Buspar) 15 mg PO BID [facility] Last Admin: 06/25/17 20:32 Dose: Not Given Buspirone HCl (Buspar) Confirm Administered Dose 20 mg .ROUTE .STK-MED ONE Stop: 06/20/17 20:01 Last Admin: 06/20/17 20:18 Dose: Not Given Buspirone HCl (Buspar) Confirm Administered Dose 20 mg .ROUTE .STK-MED ONE Stop: 06/21/17 08:03 Last Admin: 06/21/17 08:35 Dose: Not Given Buspirone HCl (Buspar) Confirm Administered Dose 20 mg .ROUTE .STK-MED ONE Stop: 06/21/17 19:38 Last Admin: 06/21/17 19:46 Dose: Not Given Buspirone HCl (Buspar) Confirm Administered Dose 20 mg .ROUTE .STK-MED ONE Stop: 06/22/17 07:20 Last Admin: 06/22/17 08:12 Dose: Not Given Buspirone HCl (Buspar) Confirm Administered Dose 20 mg .ROUTE .STK-MED ONE Stop: 06/22/17 19:47 Last Admin: 06/22/17 19:53 Dose: Not Given Buspirone HCl (Buspar) Confirm Administered Dose 20 mg .ROUTE .STK-MED ONE Stop: 06/23/17 07:43 Last Admin: 06/23/17 10:54 Dose: Not Given Buspirone HCl (Buspar) Confirm Administered Dose 20 mg .ROUTE .STK-MED ONE Stop: 06/23/17 19:32 Last Admin: 06/24/17 08:39 Dose: Not Given Buspirone HCl (Buspar) Confirm Administered Dose 20 mg .ROUTE .[facility]-MED ONE Stop: 06/24/17 07:18 Last Admin: 06/24/17 08:39 Dose: Not Given Buspirone HCl (Buspar) Confirm Administered Dose 20 mg .ROUTE .K-MED ONE Stop: 06/24/17 19:55 Last Admin: 06/25/17 07:44 Dose: Not Given Buspirone HCl (Buspar) Confirm Administered Dose 20 mg .ROUTE .[facility]-MED ONE Stop: 06/25/17 18:26 Last Admin: 06/25/17 20:29 Dose: Not Given Buspirone HCl (Buspar) Confirm Administered Dose 10 mg .ROUTE .[facility]-MED ONE Stop: 06/25/17 18:28 Last Admin: 06/25/17 20:29 Dose: Not Given Buspirone HCl (Buspar) 15 mg PO BID [facility] Last Admin: 07/09/17 06:02 Dose: 15 mg Calamine/Phenol (Calmoseptine) Confirm Administered Dose 113 gm TOP .[facility]-MED ONE Stop: 06/29/17 12:26 Last Admin: 06/29/17 14:06 Dose: 1 applic Docusate Sodium (Colace) 100 mg PO BID [facility] Last Admin: 07/08/17 21:30 Dose: Not Given Ferrous Sulfate (Ferrous Sulfate) 325 mg PO BIDMEALS [facility] Last Admin: 07/09/17 06:01 Dose: 325 mg Finasteride (Proscar) 5 mg PO BEDTIME [facility] Last Admin: 07/08/17 20:24 Dose: 5 mg Levothyroxine Sodium (Levothyroxine) 25 mcg PO ACBREAKFAST [facility] Last Admin: 07/09/17 05:21 Dose: 25 mcg Lisinopril (Prinivil) 5 mg PO DAILY [facility] Last Admin: 07/09/17 06:02 Dose: 5 mg Magnesium Hydroxide (Milk Of Magnesia) 30 ml PO DAILY PRN PRN Reason: Constipation Last Admin: 07/03/17 07:33 Dose: 30 ml Metformin HCl (Glucophage) 250 mg PO BIDMEALS [facility] Last Admin: 07/03/17 16:58 Dose: 250 mg Metoprolol Tartrate (Lopressor) 25 mg PO BID [facility] Last Admin: 07/09/17 06:01 Dose: 25 mg Polyethylene Glycol (Miralax) 17 gm PO DAILY [facility] Last Admin: 07/08/17 07:30 Dose: 17 gm Simvastatin (Zocor) 20 mg PO BEDTIME [facility] Last Admin: 07/08/17 20:24 Dose: 20 mg Tamsulosin HCl (Flomax) 0.4 mg PO ACLUNCH [facility] Last Admin: 06/26/17 11:26 Dose: 0.4 mg Tamsulosin HCl (Flomax) Confirm Administered Dose 0.4 mg .ROUTE .[facility]-MED ONE Stop: 06/21/17 13:02 Last Admin: 06/21/17 13:09 Dose: Not Given Tamsulosin HCl (Flomax) 0.4 mg PO DAILY@0800 [facility] Last Admin: 06/28/17 07:35 Dose: 0.4 mg Tamsulosin HCl (Flomax) 0.8 mg PO PCBREAKFAST [facility] Last Admin: 07/02/17 10:27 Dose: 0.8 mg Tamsulosin HCl (Flomax) 0.4 mg PO PCBREAKFAST [facility] Last Admin: 07/09/17 06:04 Dose: 0.4 mg - Exam General: Reports: Alert, Oriented *Q Meaningful Use (DIS) - VTE *Q VTE Criteria *Q: - Stroke *Q Stroke Criteria *Q: - AMI *Q AMI Criteria *Q:
== END 2017-07-09 06:40 | disposition home or self-care (01) | DRG 948 ==
LOC: LB.MS 09:29 → UNDOADMIN 09:29 → LB.MS 10:43
PROVIDERS: ADMIT Nurse Practitioner Family; ATTEND Nurse Practitioner Family
DX: R53.1 Weakness (principal); R33.9 Retention of urine, unspecified; Z66 Do not resuscitate; I12.9 Hypertensive chronic kidney disease with stage 1 through stage 4 chronic kidney disease, or unspecified chronic kidney disease; E11.22 Type 2 diabetes mellitus with diabetic chronic kidney disease; N18.9 Chronic kidney disease, unspecified; Z79.84 Long term (current) use of oral hypoglycemic drugs; Z85.46 Personal history of malignant neoplasm of prostate; Z85.828 Personal history of other malignant neoplasm of skin; Z92.3 Personal history of irradiation; Z96.649 Presence of unspecified artificial hip joint; Z79.82 Long term (current) use of aspirin
CPT/HCPCS: 36415; 51701; 51702; 51798; 80048; 82962; 85014; 85018; 85025; 97110-GO; 97110-GP; 97116-GP; 97530-GO; 97530-GP; 97535-GO; A9270-GY

== ENCOUNTER 2017-12-10 16:03 | Emergency (ER) | payer MEDICARE, OTHER ==
[2017-12-10 17:37] VITALS: BP 138/47
--- NOTE | 2017-12-11 17:21 | ER ---
DATE OF SERVICE: 12/10/2017 HISTORY OF PRESENT ILLNESS: An 87-year-old male who comes in with a friend with complaints of the patient's 3rd toe on the left foot being red and swollen. He states that it is normally this way, but the redness has gotten worse. The patient's friend's is a nurse who has been helping the patient with some basic cares and she was able to squeeze this area earlier this morning and some yellow discharge was present. The patient did not have any pain at that time and there is no obvious recent injury to this area. The patient has not been running a fever and he tells me he does not feel sick. PAST MEDICAL HISTORY: Includes diabetes with peripheral neuropathy. OBJECTIVE: GENERAL APPEARANCE: The patient is awake and alert. He is pleasant , smiley in nature. He is somewhat hard of hearing. VITAL SIGNS: Reviewed and they are normal. He is afebrile. 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 The lateral side of the toe has a mildly erythematous rash which the patient tells me is new. I can see the area where the previous discharge was expressed through the skin, it is dry at this time. The area is slightly warm to touch, but again the patient denies any pain. This is possibly due to peripheral neuropathy. He admits that he does have history of gout. DIAGNOSIS: Cellulitis to left 3rd toe. TREATMENT PLAN: Augmentin will be started. He is to keep his foot elevated. They are to apply warm packs 2 to 3 times a day and the area is to be monitored closely. It appears that the patient's symptoms are starting to improve after the small abscess was drained earlier today. Followup is p.r.n. over the next 2 or 3 days if his symptoms should happen to get worse or recheck next week early in the clinic would be a good idea. HARVEY/DEBBIE /[id number] RANDY
== END 2017-12-10 16:30 | disposition home or self-care (01) ==
LOC: LB.ED 16:03
DX: L03.032 Cellulitis of left toe (principal); E11.40 Type 2 diabetes mellitus with diabetic neuropathy, unspecified
CPT/HCPCS: 99283

== ENCOUNTER 2018-04-21 02:04 | Observation (INO) | payer MEDICARE, OTHER ==
--- NOTE | 2018-04-21 03:21 | EDM.PDOC ---
ED HPI GENERAL MEDICAL PROBLEM - General Chief Complaint: General Stated Complaint: HEMATOCHEZIA Time Seen by Provider: 04/21/18 02:50 Source of Information: Reports: Patient History Limitations: Reports: No Limitations - History of Present Illness INITIAL COMMENTS - FREE TEXT/NARRATIVE: According to patient he calims that he was fine until 10:30 pm last night ( 5 hrs ago). he felt like using the toilet and had a wanda bloody stool, following which he did feel urge to defecate and had 2 more episodes which basically contained wanda blood mixed with dark stools. since then he has not had any more bloody stool or urge to defecate. no abdominal pain. Pt has chronic anemia and he does take iron tablets daily and his stools have always been black, but never had blood in the stool. No abdominal pain or distension. no weakness, blurry vision or shortness of breath. no belching, epigastric discomfort or heart burn. no dyspepsia. takes one baby aspirin daily. he claims he feels fine now. Pt has had screening colonoscopy in the past but not sure when was his last colonoscopy. Onset Date: 04/20/18 Onset Time: 20:30 Duration: Waxing/Waning Associated Symptoms: Denies: Confusion, Chest Pain, Cough, Diaphoresis, Fever/ Chills, Headaches, Loss of Appetite, Malaise, Nausea/Vomiting, Rash, Seizure, Shortness of Breath, Syncope, Weakness - Related Data Allergies Allergy/AdvReac Type Severity Reaction Status Date / Time No Known Allergies Allergy Verified 04/21/18 02:45 Home Meds: Home Meds Metoprolol Tartrate [Lopressor] 25 mg PO BID 11/06/14 [History] Simvastatin [Zocor] 20 mg PO BEDTIME 11/06/14 [History] amLODIPine Besylate [Amlodipine Besylate] 10 tab PO DAILY 11/06/14 [History] Aspirin [Nicki Chewable Aspirin] 81 mg PO BEDTIME 10/19/15 [History] Levothyroxine Sodium [Synthroid] 25 mcg PO DAILY 11/12/15 [History] busPIRone [Buspar] 15 mg PO BID 11/12/15 [History] Tamsulosin HCl [Flomax] 0.4 mg PO ACLUNCH 06/20/17 [History] Acetaminophen [Tylenol Arthritis Pain] 650 mg PO BID tab.er 07/07/17 [Rx] Docusate Sodium [Colace] 100 mg PO BID cap 07/07/17 [Rx] Ferrous Sulfate 325 mg PO BIDMEALS #60 tablet 07/07/17 [Rx] Finasteride [Proscar] 5 mg PO BEDTIME #30 tablet 07/07/17 [Rx] Lisinopril [Prinivil] 5 mg PO DAILY #30 tablet 07/07/17 [Rx] Magnesium Hydroxide [Milk of Magnesia] 30 ml PO DAILY PRN cup 07/07/17 [Rx] Polyethylene Glycol 3350 [MiraLAX] 17 gm PO DAILY #1 bottle 07/07/17 [Rx] Past Medical History HEENT History: Reports: Cataract, Hard of Hearing Cardiovascular History: Reports: High Cholesterol, Hypertension Respiratory History: Reports: SOB Gastrointestinal History: Reports: Chronic Constipation Genitourinary History: Reports: Prostate Disorder Other Genitourinary History: Pt has a hx of prostate cancer that was treated with radiation beads. 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 - Infectious Disease History Infectious Disease History: Reports: Chicken Pox - Past Surgical History HEENT Surgical History: Reports: None Cardiovascular Surgical History: Reports: None Respiratory Surgical History: Reports: None GI Surgical History: Reports: None Male Surgical History: Reports: None Endocrine Surgical History: Reports: None Musculoskeletal Surgical History: Reports: Hip Replacement Oncologic Surgical History: Reports: None Dermatological Surgical History: Reports: None Social & Family History - Family History Family Medical History: Noncontributory Cardiac: Reports: None - Tobacco Use Smoking Status *Q: Never Smoker Second Hand Smoke Exposure: No - Caffeine Use Caffeine Use: Reports: Coffee - Recreational Drug Use Recreational Drug Use: No ED ROS GENERAL - Review of Systems Review Of Systems: See Below Constitutional: Denies: Fever, Chills, Malaise, Weakness, Night Sweats, Diaphoresis, Decreased Appetite HEENT: Denies: Rhinitis, Throat Pain, Throat Swelling, Vision Change Respiratory: Denies: Shortness of Breath, Cough, Sputum Cardiovascular: Denies: Chest Pain, Lightheadedness GI/Abdominal: Reports: Constipation, Flatus, Hematochezia. Denies: Abdominal Pain, Diarrhea, Distension, Hematemesis, Nausea, Vomiting : Denies: Dysuria, Flank Pain Musculoskeletal: Denies: Joint Pain, Joint Swelling Skin: Denies: Bruising, Pruritis, Rash, Erythema Neurological: Denies: Confusion, Dizziness, Headache, Numbness, Tingling, Weakness Psychiatric: Denies: Agitation, Anxiety, Confusion ED EXAM, GENERAL - Physical Exam Exam: See Below Exam Limited By: No Limitations General Appearance: Alert, WD/WN, No Apparent Distress Eye Exam: Bilateral Eye: EOMI, PERRL Ears: Normal External Exam, Normal Canal, Hearing Grossly Normal, Normal TMs Ear Exam: Bilateral Ear: Auricle Normal, Canal Normal, TM normal Nose: Normal Inspection, Normal Mucosa, No Blood Throat/Mouth: Normal Inspection, Normal Lips, Normal Teeth, Normal Gums, Normal Oropharynx, Normal Voice, No Airway Compromise Head: Atraumatic, Normocephalic Neck: Normal Inspection, Supple, Non-Tender, Full Range of Motion Respiratory/Chest: No Respiratory Distress, Lungs Clear, Normal Breath Sounds, No Accessory Muscle Use, Chest Non-Tender Cardiovascular: Normal Peripheral Pulses, Regular Rate, Rhythm, No Edema, No Gallop, No JVD, No Murmur, No Rub Peripheral Pulses: 2+: Carotid (L), Carotid (R), Radial (L), Radial (R) GI/Abdominal: Normal Bowel Sounds, Soft, Non-Tender, No Organomegaly, No Distention, No Abnormal Bruit, No Mass. No: Guarding, Rigid, Rebound, Tender (Male) Exam: No Hernia, Normal Inspection, Normal Prostate. No: Suprapubic Fullness Rectal (Males) Exam: Normal Exam, Normal Rectal Tone, Prostate Normal, Black Stool (balck stool, but does not have tarry or sticky consistency.), Bloody Stool (there is only streaks of wanda blood noted on the finger, no active gush of blood.), Heme + Stool. No: Fecal Impaction, Hemorrhoids, Mass, Rectal Fissure, Tenderness Back Exam: Normal Inspection, Full Range of Motion, NT Extremities: Normal Inspection, Normal Range of Motion, Non-Tender, Normal Capillary Refill, No Pedal Edema Neurological: Alert, Oriented, CN II-XII Intact Course - Vital Signs Text/Narrative:: Hemoglobin today is 10.9 and his hemoglobin in Aug 2017 was 11.6. his creat today is 1.89 and in Aug 2017 was 1.8. His blood urea today is elevated at 48 consistent with GI bleed. Rest of the CBC and CMP are stable. His PT and PTT are stable Pt woke up at 10:30PM to night and has one wanda bloody stool , followed by 2 more stool, which were more of black stool with streaks of blood. Stool hemoccult is positive.The episodes of defecation were painless. He does not have any acute abdominal discomfort. This does appear like diverticular bleed from history. Presently on rectal exam he does not have pooling of blood in the rectal vault. Does appear like the bleeding might have stopped. Also his dark black stool is chronic and is related to his consumption of iron tablets daily. Will get CT abdomen and pelvis in the morning. Pt is clinically stable and presently asymptomatic. His vitals are normal.The plan is to admit patient to the hospital for observation and check serial hemoglobin and hemotocrit every 4 hrs to check the status of rectal bleeding, whether he is actively bleeding or the bleeding has stopped. In my opinion it does appear like the bleeding has stopped. If his serial h/H are stable , plan will be to discharge patient and have him brought back for interval colonoscopy. If the H/H continue to fall, might need transfer to figure out the cause of lower GI bleed. Pt does understand the plan and agree to it. Last Recorded V/S: Last Vital Signs Temp 97.7 F 04/21/18 02:31 Pulse 64 04/21/18 02:31 Resp 16 04/21/18 02:31 BP 140/53 L 04/21/18 02:31 Pulse Ox 99 04/21/18 02:31 - Orders/Labs/Meds Orders: Active Orders 24 hr Category Date Time Status Patient Status [ADT] Routine ADT 04/21/18 03:51 Ordered Bedrest Bathroom Privileges [RC] ASDIRECTED Care 04/21/18 03:51 Ordered Height and Weight [RC] UPON Care 04/21/18 03:51 Ordered Intake and Output [RC] QSHIFT Care 04/21/18 03:53 Ordered Oxygen Therapy [RC] PRN Care 04/21/18 03:51 Ordered VTE/DVT Education [RC] Per Unit Routine Care 04/21/18 03:51 Ordered Vital Signs [RC] Q4H Care 04/21/18 03:51 Ordered Full Liquid Diet [DIET] Diet 04/21/18 Breakfast Ordered Abdomen Pelvis wo Cont [CT] Routine Exams 04/21/18 07:30 Ordered HEMOGLOBIN/HEMATOCRIT,HH [HEME] Routine Lab 04/21/18 08:00 Ordered Sodium Chloride 0.9% [Normal Saline] 1,000 ml Med 04/21/18 04:00 Ordered IV ASDIRECTED Sodium Chloride 0.9% [Saline Flush] Med 04/21/18 03:51 Ordered 10 ml FLUSH ASDIRECTED PRN Peripheral IV Insertion Adult [OM.PC] Routine Oth 04/21/18 03:51 Ordered Resuscitation Status Routine Resus Stat 04/21/18 03:51 Ordered Medication Orders Sodium Chloride (Normal Saline) 1,000 mls @ 50 mls/hr IV ASDIRECTED ROBEL Sodium Chloride (Saline Flush) 10 ml FLUSH ASDIRECTED PRN PRN Reason: Keep Vein Open Labs: Laboratory Tests 04/21/18 04/21/18 04/21/18 Range/Units 03:15 03:15 03:15 WBC 11.1 H (4.0-11.0) K/uL RBC 3.52 L (4.50-6.50) M/uL Hgb 10.9 L (13.0-18.0) g/dL Hct 32.8 L (40.0-54.0) % MCV 93 (76-96) fL MCH 31.0 (27.0-32.0) pg MCHC 33.2 (31.0-35.0) g/dL RDW 14.1 (11.0-16.0) % Plt Count 190 D (150-400) K/uL MPV 9.6 (6.0-10.0) fL Neut % (Auto) 74.9 H (45.0-70.0) % Lymph % (Auto) 14.9 L (20.0-40.0) % [place] % (Auto) 7.7 (3.0-10.0) % Eos % (Auto) 2.0 (1.0-5.0) % Baso % (Auto) 0.5 (0.0-0.5) % Neut # (Auto) 8.32 H (2.00-7.50) K/uL Lymph # (Auto) 1.66 (1.50-4.00) K/uL [place] # (Auto) 0.85 H (0.20-0.80) K/uL Eos # (Auto) 0.22 (0.04-0.40) K/uL Baso # (Auto) 0.06 (0.02-0.10) K/uL PT 9.0 (9.0-11.5) sec INR 0.9 L (1.0-3.5) APTT 24.9 (24.4-33.2) SECONDS Sodium 143 (136-145) mmol/L Potassium 4.4 (3.5-5.1) mmol/L Chloride 106 (98-107) mmol/L Carbon Dioxide 21.1 (21.0-32.0) mmol/L Anion Gap 20.3 H (5.0-15.0) mmol/L BUN 49 H (8-26) mg/dL Creatinine 1.89 H (0.70-1.30) mg/dL Est Cr Clr Drug Dosing 24.85 mL/min Estimated GFR (MDRD) 34 L (>60) MLS/MIN BUN/Creatinine Ratio 25.9 H (6-25) Glucose 187 H D (74-100) mg/dL Calcium 8.0 L (8.5-10.1) mg/dL Total Bilirubin 0.4 D (0.0-1.0) mg/dL AST 17 (15-37) U/L ALT 12 (12-78) U/L Alkaline Phosphatase 73 (46-116) U/L Total Protein 7.0 (6.4-8.2) g/dL Albumin 3.8 (3.4-5.0) g/dL Globulin 3.2 (2.2-4.2) g/dL Albumin/Globulin Ratio 1.2 (0.8-2.0) Meds: Medications Generic Name Dose Route Start Last Admin Trade Name Freq PRN Reason Stop Dose Admin Sodium Chloride 1,000 mls @ 50 mls/hr 04/21/18 04:00 Normal Saline IV ASDIRECTED ROBEL Sodium Chloride 10 ml 04/21/18 03:51 Saline Flush FLUSH ASDIRECTED PRN Keep Vein Open Departure - Departure Time of Disposition: 04:00 Disposition: Refer to Observation Condition: Fair Clinical Impression: Hematochezia, Bleeding per rectum Clinical Impression: (Ruled Out): Hematochezia not due to hemorrhage from anus - Discharge Information Referrals: PCP,None [Primary Care Provider] - Forms: ED Department Discharge - Problem List & Annotations (1) Bleeding per rectum SNOMED Code(s): 20327223 Code(s): K62.5 - HEMORRHAGE OF ANUS AND RECTUM Status: Acute Current Visit: Yes (2) Hematochezia SNOMED Code(s): 562623364 Code(s): K92.1 - MELENA Status: Acute Current Visit: Yes - Problem List Review Problem List Initiated/Reviewed/Updated: Yes - My Orders Last 24 Hours: My Active Orders 04/21/18 03:51 Patient Status [ADT] Routine Bedrest Bathroom Privileges [RC] ASDIRECTED Height and Weight [RC] UPON Oxygen Therapy [RC] PRN VTE/DVT Education [RC] Per Unit Routine Vital Signs [RC] Q4H Sodium Chloride 0.9% [Saline Flush] 10 ml FLUSH ASDIRECTED PRN Peripheral IV Insertion Adult [OM.PC] Routine Resuscitation Status Routine 04/21/18 03:53 Intake and Output [RC] QSHIFT 04/21/18 04:00 Sodium Chloride 0.9% [Normal Saline] 1,000 ml IV ASDIRECTED 04/21/18 07:30 Abdomen Pelvis wo Cont [CT] Routine 04/21/18 08:00 HEMOGLOBIN/HEMATOCRIT,HH [HEME] Routine 04/21/18 Breakfast Full Liquid Diet [DIET] - Assessment/Plan Last 24 Hours: My Active Orders 04/21/18 03:51 Patient Status [ADT] Routine Bedrest Bathroom Privileges [RC] ASDIRECTED Height and Weight [RC] UPON Oxygen Therapy [RC] PRN VTE/DVT Education [RC] Per Unit Routine Vital Signs [RC] Q4H Sodium Chloride 0.9% [Saline Flush] 10 ml FLUSH ASDIRECTED PRN Peripheral IV Insertion Adult [OM.PC] Routine Resuscitation Status Routine 04/21/18 03:53 Intake and Output [RC] QSHIFT 04/21/18 04:00 Sodium Chloride 0.9% [Normal Saline] 1,000 ml IV ASDIRECTED 04/21/18 07:30 Abdomen Pelvis wo Cont [CT] Routine 04/21/18 08:00 HEMOGLOBIN/HEMATOCRIT,HH [HEME] Routine 04/21/18 Breakfast Full Liquid Diet [DIET] Assessment:: painless rectal bleeding Plan: Hemoglobin today is 10.9 and his hemoglobin in Aug 2017 was 11.6. his creat today is 1.89 and in Aug 2017 was 1.8. His blood urea today is elevated at 48 consistent with GI bleed. Rest of the CBC and CMP are stable. His PT and PTT are stable Pt woke up at 10:30PM to night and has one wanda bloody stool , followed by 2 more stool, which were more of black stool with streaks of blood. Stool hemoccult is positive.The episodes of defecation were painless. He does not have any acute abdominal discomfort. This does appear like diverticular bleed from history. Presently on rectal exam he does not have pooling of blood in the rectal vault. Does appear like the bleeding might have stopped. Also his dark black stool is chronic and is related to his consumption of iron tablets daily. Will get CT abdomen and pelvis in the morning. Pt is clinically stable and presently asymptomatic. His vitals are normal.The plan is to admit patient to the hospital for observation and check serial hemoglobin and hemotocrit every 4 hrs to check the status of rectal bleeding, whether he is actively bleeding or the bleeding has stopped. In my opinion it does appear like the bleeding has stopped. If his serial h/H are stable , plan will be to discharge patient and have him brought back for interval colonoscopy. If the H/H continue to fall, might need transfer to figure out the cause of lower GI bleed. Pt does understand the plan and agree to it.
[2018-04-21] MEDS ORDERED: Sodium Chloride 0.9% 10 ML Syringe FLUSH PRN (03:51)
[2018-04-21] MEDS: Sodium Chloride 0.9% 1,000 ML IV SCH (04:22)
[2018-04-21] MEDS: LISINOPRIL 5 MG PO SCH (11:00)
[2018-04-21] MEDS: Non-Formulary Medication 1 Each (Metoprolol Tartrate [Lopressor] 25 MG) PO SCH (11:00)
[2018-04-21] MEDS: TAMSULOSIN HCL 0.4 MG PO SCH (11:01)
[2018-04-21] MEDS: Non-Formulary Medication 1 Each (Buspirone [Buspar] 15 MG) PO SCH (11:01)
--- NOTE | 2018-04-21 11:01 | CT ---
DATE OF SERVICE: 04/21/18 CLINICAL DATA: hematochezia UNENHANCED ABDOMEN AND PELVIC CT: Multislice acquisition to the abdomen and pelvis without IV or oral contrast was performed. No priors. The lung bases are clear. The heart size is normal. There are coronary artery calcifications. There is also calcification in the region of the mitral valve. The unenhanced liver is normal size. It is mildly hyperdense diffusely suggesting hemochromatosis. No focal hepatic lesions. The gallbladder appears normal. The spleen appears normal. The pancreas appears normal. The right and left adrenals appear normal. There is mild atrophy of both kidneys. There is a 6.3 cm fluid density lesion in the upper pole of the left kidney, consistent with a renal cyst. There are smaller fluid density lesions in both kidneys, consistent with renal cysts. No nephrocalcinosis or nephrolithiasis. No hydronephrosis or hydroureter. The bladder is partially fluid filled. There is a small bladder diverticulum projecting from the anterior aspect of the bladder. The prostate is enlarged. There are multiple surgical clips noted within the prostate. There is a small hiatal hernia. There is apparent diffuse gastric wall thickening. This is probably related to nondistention. Gastritis or an infiltrating process should at least be considered. The appendix is not clearly seen. No evidence of appendicitis. There is diverticulosis throughout the colon. No evidence of diverticulitis. There is asymmetric mural thickening within the rectum. There is also mural thickening within the distal descending and proximal sigmoid colon. Colonoscopy is recommended to exclude an infiltrating process. No free air. No free fluid. No dilated loops of bowel. No adenopathy. No aortic aneurysm. IMPRESSION: Multiple findings as discussed above. See above recommendation. [id number] [facility]
[2018-04-21 11:53] VITALS: BP 133/48
--- NOTE | 2018-04-21 13:50 | PCM.DCSUM1 ---
Discharge Summary - Hospital Course Free Text/Narrative:: Pt was admitted with acute GI bleed last night.Pt has not had any more Adarsh bloody stool. He has not had any bowel movement since admission. HAs remained asymptomatic. No abdominal pain or distension. His CT abdomen and pelvis shows diverticulosis of the colon. No fever or chills. His Admission hemoglobin was 10.9gm. Repeat hemoglobin every 4 hrs was 10.5gms and 10.9gms. His hemotocrit has been improving form 32 to 33. This confirms that he is presently not having active bleeding. This might be a episode of diverticulitis bleed. As his bleeding remains stable will plan on discharge. I have advised patient and his field care manager that he should have Colonoscopy scheduled considering his recent GI bleed for completion of workup. Advised to continue home meds. Diverticular diet discussed. Also colace 100mg twice daily to keep the stools soft to prevent bleed. HPI Initial Comments: Pt has not had anymore blood stools. Claims he feel fine. tolerating oral diet well. Brief History: Pt presented to emergency room with sudden onset of bloody stool since 10:30 PM yesterday.Admitted for observation and serial H/H. Kindly see H& P for details. Diagnosis: Stroke: No - Discharge Data Discharge Date: 04/21/18 Discharge Disposition: Home, Self-Care 01 Condition: Stable - Discharge Diagnosis/Problem(s) (1) Bleeding per rectum SNOMED Code(s): 49214888 ICD Code: K62.5 - HEMORRHAGE OF ANUS AND RECTUM Status: Acute Current Visit: Yes (2) Hematochezia SNOMED Code(s): 697248328 ICD Code: K92.1 - MELENA Status: Acute Current Visit: Yes - Patient Instructions Diet: Usual Diet as Tolerated Fluid Restriction: 1500 mL Activity: As Tolerated Driving: May Drive Today Showering/Bathing: May Shower - Discharge Plan *PRESCRIPTION DRUG MONITORING PROGRAM REVIEWED*: Not Applicable *COPY OF PRESCRIPTION DRUG MONITORING REPORT IN PATIENT KEISHA: Not Applicable Home Medications: Home Meds Metoprolol Tartrate [Lopressor] 25 mg PO BID 11/06/14 [History] Simvastatin [Zocor] 20 mg PO BEDTIME 11/06/14 [History] amLODIPine Besylate [Amlodipine Besylate] 10 tab PO DAILY 11/06/14 [History] Aspirin [Nicki Chewable Aspirin] 81 mg PO BEDTIME 10/19/15 [History] busPIRone [Buspar] 15 mg PO BID 11/12/15 [History] Tamsulosin HCl [Flomax] 0.4 mg PO BID 06/20/17 [History] Finasteride [Proscar] 5 mg PO BEDTIME #30 tablet 07/07/17 [Rx] Lisinopril [Prinivil] 5 mg PO DAILY #30 tablet 07/07/17 [Rx] Bethanechol [Urecholine] 10 mg PO TID 04/21/18 [History] Ferrous Sulfate 325 mg PO DAILY 04/21/18 [History] Levothyroxine 25 mcg PO ACBREAKFAST 04/21/18 [History] Forms: ED Department Discharge Referrals: PCP,None [Primary Care Provider] - - Discharge Summary/Plan Comment DC Time >30 min.: Yes - General Info Subjective Update: Pt ahs no abdomianl pain or distension. No bloody stool since admission. Functional Status: Reports: Pain Controlled, Tolerating Diet, Ambulating, Urinating - Review of Systems General: Denies: Fever, Weakness, Fatigue, Malaise HEENT: Denies: Glasses, Headaches, Sinus Congestion Pulmonary: Denies: Shortness of Breath, Sputum, Hemoptysis Cardiovascular: Denies: Chest Pain, Lightheadedness Gastrointestinal: Reports: Flatus. Denies: Abdominal Pain, Constipation, Decreased Appetite, Diarrhea, Hematochezia, Nausea, Vomiting Genitourinary: Denies: Dysuria, Frequency, Burning Musculoskeletal: Denies: Joint Pain, Joint Swelling Skin: Denies: Bruising, Pruritis, Rash Neurological: Denies: Confusion, Dizziness, Headache - Patient Data Vitals - Most Recent: Last Vital Signs Temp 98.9 F 04/21/18 11:42 Pulse 65 04/21/18 11:42 Resp 18 04/21/18 11:42 BP 133/48 L 04/21/18 11:42 Pulse Ox 96 04/21/18 11:42 Weight - Most Recent: 78.29 kg I&O - Last 24 hours: Intake & Output 04/20/18 04/21/18 04/21/18 22:59 06:59 14:59 Intake Total 88 Output Total 600 Balance 88 -600 Lab Results - Last 24 hrs: Laboratory Results - last 24 hr 04/21/18 04/21/18 04/21/18 Range/Units 03:15 03:15 03:15 WBC 11.1 H (4.0-11.0) K/uL RBC 3.52 L (4.50-6.50) M/uL Hgb 10.9 L (13.0-18.0) g/dL Hct 32.8 L (40.0-54.0) % MCV 93 (76-96) fL MCH 31.0 (27.0-32.0) pg MCHC 33.2 (31.0-35.0) g/dL RDW 14.1 (11.0-16.0) % Plt Count 190 D (150-400) K/uL MPV 9.6 (6.0-10.0) fL Neut % (Auto) 74.9 H (45.0-70.0) % Lymph % (Auto) 14.9 L (20.0-40.0) % [place] % (Auto) 7.7 (3.0-10.0) % Eos % (Auto) 2.0 (1.0-5.0) % Baso % (Auto) 0.5 (0.0-0.5) % Neut # (Auto) 8.32 H (2.00-7.50) K/uL Lymph # (Auto) 1.66 (1.50-4.00) K/uL [place] # (Auto) 0.85 H (0.20-0.80) K/uL Eos # (Auto) 0.22 (0.04-0.40) K/uL Baso # (Auto) 0.06 (0.02-0.10) K/uL PT 9.0 (9.0-11.5) sec INR 0.9 L (1.0-3.5) APTT 24.9 (24.4-33.2) SECONDS Sodium 143 (136-145) mmol/L Potassium 4.4 (3.5-5.1) mmol/L Chloride 106 (98-107) mmol/L Carbon Dioxide 21.1 (21.0-32.0) mmol/L Anion Gap 20.3 H (5.0-15.0) mmol/L BUN 49 H (8-26) mg/dL Creatinine 1.89 H (0.70-1.30) mg/dL Est Cr Clr Drug Dosing 24.85 mL/min Estimated GFR (MDRD) 34 L (>60) MLS/MIN BUN/Creatinine Ratio 25.9 H (6-25) Glucose 187 H D (74-100) mg/dL Calcium 8.0 L (8.5-10.1) mg/dL Total Bilirubin 0.4 D (0.0-1.0) mg/dL AST 17 (15-37) U/L ALT 12 (12-78) U/L Alkaline Phosphatase 73 (46-116) U/L Total Protein 7.0 (6.4-8.2) g/dL Albumin 3.8 (3.4-5.0) g/dL Globulin 3.2 (2.2-4.2) g/dL Albumin/Globulin Ratio 1.2 (0.8-2.0) 04/21/18 04/21/18 Range/Units 08:05 09:00 WBC (4.0-11.0) K/uL RBC (4.50-6.50) M/uL Hgb 10.5 L 10.9 L (13.0-18.0) g/dL Hct 31.7 L 33.1 L (40.0-54.0) % MCV (76-96) fL MCH (27.0-32.0) pg MCHC (31.0-35.0) g/dL RDW (11.0-16.0) % Plt Count (150-400) K/uL MPV (6.0-10.0) fL Neut % (Auto) (45.0-70.0) % Lymph % (Auto) (20.0-40.0) % [place] % (Auto) (3.0-10.0) % Eos % (Auto) (1.0-5.0) % Baso % (Auto) (0.0-0.5) % Neut # (Auto) (2.00-7.50) K/uL Lymph # (Auto) (1.50-4.00) K/uL [place] # (Auto) (0.20-0.80) K/uL Eos # (Auto) (0.04-0.40) K/uL Baso # (Auto) (0.02-0.10) K/uL PT (9.0-11.5) sec INR (1.0-3.5) APTT (24.4-33.2) SECONDS Sodium (136-145) mmol/L Potassium (3.5-5.1) mmol/L Chloride (98-107) mmol/L Carbon Dioxide (21.0-32.0) mmol/L Anion Gap (5.0-15.0) mmol/L BUN (8-26) mg/dL Creatinine (0.70-1.30) mg/dL Est Cr Clr Drug Dosing mL/min Estimated GFR (MDRD) (>60) MLS/MIN BUN/Creatinine Ratio (6-25) Glucose (74-100) mg/dL Calcium (8.5-10.1) mg/dL Total Bilirubin (0.0-1.0) mg/dL AST (15-37) U/L ALT (12-78) U/L Alkaline Phosphatase (46-116) U/L Total Protein (6.4-8.2) g/dL Albumin (3.4-5.0) g/dL Globulin (2.2-4.2) g/dL Albumin/Globulin Ratio (0.8-2.0) EDDA Results - Last 24 hrs: Microbiology 04/21/18 03:36 Stool Occult Blood (EDDA) - Final Stool / Feces Med Orders - Current: Current Medications Aspirin (Halfprin) 81 mg PO DAILY [facility] Sodium Chloride (Normal Saline) 1,000 mls @ 50 mls/hr IV ASDIRECTED [facility] Last Admin: 04/21/18 04:22 Dose: 50 mls/hr Non-Formulary Medication (Amlodipine Besylate [Amlodipine Besylate]) 10 tab PO DAILY [facility] Non-Formulary Medication (Bethanechol [Urecholine]) 10 mg PO TID [facility] Non-Formulary Medication (Buspirone [Buspar]) 15 mg PO BID [facility] Last Admin: 04/21/18 11:01 Dose: 15 mg Non-Formulary Medication (Finasteride [Proscar]) 5 mg PO BEDTIME [facility] Non-Formulary Medication (Levothyroxine [Levothyroxine]) 25 mcg PO ACBREAKFAST [facility] Non-Formulary Medication (Lisinopril [Prinivil]) 5 mg PO DAILY [facility] Last Admin: 04/21/18 11:00 Dose: 5 mg Non-Formulary Medication (Metoprolol Tartrate [Lopressor]) 25 mg PO BID [facility] Last Admin: 04/21/18 11:00 Dose: 25 mg Non-Formulary Medication (Simvastatin [Zocor]) 20 mg PO BEDTIME [facility] Non-Formulary Medication (Tamsulosin Hcl [Flomax]) 0.4 mg PO BID [facility] Last Admin: 04/21/18 11:01 Dose: 0.4 mg Ferrous Sulfate (325mg Tablets) 1 each PO DAILY [facility] Sodium Chloride (Saline Flush) 10 ml FLUSH ASDIRECTED PRN PRN Reason: Keep Vein Open - Exam General: Reports: Alert, Oriented HEENT: Reports: Pupils Equal Neck: Reports: Supple Lungs: Reports: Clear to Auscultation, Normal Respiratory Effort Cardiovascular: Reports: Regular Rate, Regular Rhythm GI/Abdominal Exam: Normal Bowel Sounds, Soft, Non-Tender, No Organomegaly, No Distention, No Abnormal Bruit, No Mass, Pelvis Stable Extremities: Normal Inspection, Normal Range of Motion, Non-Tender, No Pedal Edema, Normal Capillary Refill Skin: Reports: Warm, Dry, Intact Psy/Mental Status: Reports: Alert, Normal Affect, Normal Mood
[2018-04-21] MEDS: BETHANECHOL 10 MG PO SCH (14:46)
[2018-04-21] MEDS ORDERED: Non-Formulary Medication 1 Each (Finasteride [Proscar] 5 MG) PO SCH (20:00)
[2018-04-21] MEDS ORDERED: Non-Formulary Medication 1 Each (Simvastatin [Zocor] 20 MG) PO SCH (20:00)
[2018-04-22] MEDS ORDERED: LEVOTHYROXINE 25 MCG PO SCH (07:00)
[2018-04-22] MEDS ORDERED: Aspirin 81 MG Tab.EC PO SCH (08:00)
[2018-04-22] MEDS ORDERED: FERROUS SULFATE 325 MG PO SCH (08:00)
== END 2018-04-21 16:55 | disposition home or self-care (01) ==
LOC: LB.ED 02:04 → LB.MS 03:51 → UNDOADMOB 04:00
PROVIDERS: ADMIT Family Medicine; ATTEND Family Medicine
DX: K92.1 Melena (principal); K57.30 Diverticulosis of large intestine without perforation or abscess without bleeding; K44.9 Diaphragmatic hernia without obstruction or gangrene; E78.00 Pure hypercholesterolemia, unspecified; I10 Essential (primary) hypertension; K59.09 Other constipation; F41.9 Anxiety disorder, unspecified; E11.9 Type 2 diabetes mellitus without complications; M10.9 Gout, unspecified; N26.1 Atrophy of kidney (terminal); N40.0 Benign prostatic hyperplasia without lower urinary tract symptoms; C61 Malignant neoplasm of prostate; C79.2 Secondary malignant neoplasm of skin; Z92.3 Personal history of irradiation; Z79.82 Long term (current) use of aspirin; Z79.899 Other long term (current) drug therapy
CPT/HCPCS: 36415; 74176; 80053; 82272; 85014; 85018; 85025; 85610; 85730; 99284-25; A9270-GY; J7030

== ENCOUNTER 2018-08-13 09:51 | Emergency (ER) | payer MEDICARE, OTHER ==
--- NOTE | 2018-08-13 11:32 | EDM.PDOC ---
ED HPI GENERAL MEDICAL PROBLEM - General Time Seen by Provider: 08/13/18 10:00 Source of Information: Reports: Patient History Limitations: Reports: No Limitations - History of Present Illness INITIAL COMMENTS - FREE TEXT/NARRATIVE: According to patient's care associate, patient has been having right lower quadrant pain on and off for 4 days on and off. Pain is cull achy. some times last longer than other. No abdominal bloating. No fever or chills. No nausea or vomiting. No fatigue. mainframe developer says he has been eating but, not as usual. He has been having daily bowel movements but are smaller amount. Pt's claims his pain went away after he urinated yesterday. Pt has recently seen urologist at [place] for his urinary incontinence and has been on bethanechol 3 times daily. Onset Date: 08/09/18 Location: Reports: Abdomen Quality: Reports: Ache Severity: Mild Improves with: Reports: None Worsens with: Reports: None Associated Symptoms: Denies: Confusion, Chest Pain, Cough, Diaphoresis, Fever/ Chills, Headaches, Nausea/Vomiting, Rash, Seizure, Shortness of Breath, Syncope , Weakness Abdominal Pain Score (Numeric/FACES): 3 - Related Data Allergies Allergy/AdvReac Type Severity Reaction Status Date / Time No Known Allergies Allergy Verified 08/13/18 10:44 Home Meds: Home Meds Simvastatin [Zocor] 20 mg PO BEDTIME 11/06/14 [History] amLODIPine Besylate [Amlodipine Besylate] 10 tab PO DAILY 11/06/14 [History] Aspirin [Nicki Chewable Aspirin] 81 mg PO BEDTIME 10/19/15 [History] Tamsulosin HCl [Flomax] 0.4 mg PO BID 06/20/17 [History] Finasteride [Proscar] 5 mg PO BEDTIME #30 tablet 07/07/17 [Rx] Lisinopril [Prinivil] 5 mg PO DAILY #30 tablet 07/07/17 [Rx] Bethanechol [Urecholine] 10 mg PO TID 04/21/18 [History] Ferrous Sulfate 325 mg PO BID 04/21/18 [History] Levothyroxine 25 mcg PO ACBREAKFAST 04/21/18 [History] PARoxetine [Paxil] 20 mg PO DAILY 07/02/18 [History] guaiFENesin [Mucus Relief] 400 mg PO BID PRN 07/02/18 [History] Docusate Sodium [Dulcolax Stool Softener] 100 mg PO BID 08/13/18 [History] Furosemide [Lasix] 20 mg PO DAILY PRN 08/13/18 [History] [place]-3 Fatty Acids/Fish Oil [Fish Oil 1,200 mg Softgel] 1,200 mg PO DAILY 08/13 [History] Past Medical History HEENT History: Reports: Cataract, Hard of Hearing Cardiovascular History: Reports: High Cholesterol, Hypertension Respiratory History: Reports: SOB Other Respiratory History: Had albuterol inhaler in the past, is out of this medication. Gastrointestinal History: Reports: Chronic Constipation Genitourinary History: Reports: Prostate Disorder Other Genitourinary History: Pt has a hx of prostate cancer that was treated with radiation beads. 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 - Infectious Disease History Infectious Disease History: Reports: Chicken Pox - Past Surgical History HEENT Surgical History: Reports: None Cardiovascular Surgical History: Reports: None Respiratory Surgical History: Reports: None GI Surgical History: Reports: None Male Surgical History: Reports: None Endocrine Surgical History: Reports: None Musculoskeletal Surgical History: Reports: Hip Replacement Oncologic Surgical History: Reports: None Dermatological Surgical History: Reports: None Social & Family History - Family History Family Medical History: Noncontributory Cardiac: Reports: None - Caffeine Use Caffeine Use: Reports: Coffee ED ROS GENERAL - Review of Systems Review Of Systems: See Below Constitutional: Denies: Fever, Chills HEENT: Denies: Ear Pain, Rhinitis, Throat Pain Respiratory: Denies: Cough, Sputum Cardiovascular: Denies: Chest Pain, Lightheadedness Endocrine: Denies: Fatigue GI/Abdominal: Denies: Abdominal Pain, Nausea, Vomiting : Denies: Dysuria, Frequency Musculoskeletal: Denies: Joint Pain, Joint Swelling Skin: Denies: Bruising, Pruritis, Rash Neurological: Reports: Weakness. Denies: Confusion, Dizziness, Numbness, Tingling, Gait Disturbance ED EXAM, GENERAL - Physical Exam Exam: See Below Exam Limited By: No Limitations General Appearance: Alert, WD/WN, No Apparent Distress Eye Exam: Bilateral Eye: EOMI, PERRL Ears: Normal External Exam, Normal Canal, Hearing Grossly Normal, Normal TMs Ear Exam: Bilateral Ear: Auricle Normal, Canal Normal, TM normal Nose: Normal Inspection, Normal Mucosa, No Blood Throat/Mouth: Normal Inspection, Normal Lips, Normal Teeth, Normal Gums, Normal Oropharynx, Normal Voice, No Airway Compromise Head: Atraumatic, Normocephalic Neck: Normal Inspection, Supple, Non-Tender, Full Range of Motion Respiratory/Chest: No Respiratory Distress, Lungs Clear, Normal Breath Sounds, No Accessory Muscle Use, Chest Non-Tender Cardiovascular: Normal Peripheral Pulses, Regular Rate, Rhythm, No Edema, No Gallop, No JVD, No Murmur, No Rub GI/Abdominal: Normal Bowel Sounds, Soft, Non-Tender, No Organomegaly, No Distention, No Abnormal Bruit, No Mass Back Exam: Normal Inspection, Full Range of Motion, NT Extremities: Normal Inspection, Normal Range of Motion, Non-Tender, Normal Capillary Refill, No Pedal Edema Course - Vital Signs Text/Narrative:: Pt's CBC is normal. His BMP shows normal electrolytes, but his creat is up from 1.9 to 2.25 today. His abdominal X-ray show normal gas pattern with stool in the colon. Pt was offered admission for Iv hydration, but his care associate says he does drink 6-8 large glass of water daily. His abdominal pain might be bethnechol related spasm, or mild constipation. Reassured. advised plenty of oral fluids. stool softeners. miralax 1 table spoon with 8 oz of water at bed time. Should followup with his urologist for his chronic incontinence. - Orders/Labs/Meds Orders: Active Orders 24 hr Category Date Time Status Abdomen 1V Upright [CR] Stat Exams 08/13/18 10:58 Taken Labs: Laboratory Tests 08/13/18 08/13/18 Range/Units 11:15 11:15 WBC 11.5 H (4.0-11.0) K/uL RBC 4.04 L (4.50-6.50) M/uL Hgb 12.2 L (13.0-18.0) g/dL Hct 36.6 L (40.0-54.0) % MCV 91 (76-96) fL MCH 30.2 (27.0-32.0) pg MCHC 33.3 (31.0-35.0) g/dL RDW 14.7 (11.0-16.0) % Plt Count 265 D (150-400) K/uL MPV 9.8 (6.0-10.0) fL Neut % (Auto) 80.1 H (45.0-70.0) % Lymph % (Auto) 10.9 L (20.0-40.0) % [place] % (Auto) 8.3 (3.0-10.0) % Eos % (Auto) 0.4 L (1.0-5.0) % Baso % (Auto) 0.3 (0.0-0.5) % Neut # (Auto) 9.18 H (2.00-7.50) K/uL Lymph # (Auto) 1.25 L (1.50-4.00) K/uL [place] # (Auto) 0.95 H (0.20-0.80) K/uL Eos # (Auto) 0.05 (0.04-0.40) K/uL Baso # (Auto) 0.04 (0.02-0.10) K/uL Sodium 137 (136-145) mmol/L Potassium 4.6 (3.5-5.1) mmol/L Chloride 101 (98-107) mmol/L Carbon Dioxide 22.3 (21.0-32.0) mmol/L Anion Gap 18.3 H (5.0-15.0) mmol/L BUN 54 H* D (8-26) mg/dL Creatinine 2.29 H D (0.70-1.30) mg/dL Est Cr Clr Drug Dosing TNP Estimated GFR (MDRD) 27 L (>60) MLS/MIN BUN/Creatinine Ratio 23.6 (6-25) Glucose 154 H (74-100) mg/dL Calcium 9.2 (8.5-10.1) mg/dL Total Bilirubin 0.5 D (0.0-1.0) mg/dL AST 16 (15-37) U/L ALT 14 (12-78) U/L Alkaline Phosphatase 68 (46-116) U/L Total Protein 7.8 (6.4-8.2) g/dL Albumin 3.9 (3.4-5.0) g/dL Globulin 3.9 (2.2-4.2) g/dL Albumin/Globulin Ratio 1.0 (0.8-2.0) Departure - Departure Time of Disposition: 13:30 Disposition: Home, Self-Care 01 Condition: Fair Clinical Impression: Abdominal pain - Discharge Information *PRESCRIPTION DRUG MONITORING PROGRAM REVIEWED*: Not Applicable *COPY OF PRESCRIPTION DRUG MONITORING REPORT IN PATIENT KEISHA: Not Applicable Instructions: Abdominal Pain, Adult, [id number] Referrals: PCP,None [Primary Care Provider] - Forms: ED Department Discharge, ED Return to Work/School Form Care Plan Goals: Encourage fluids, at least 1 1/2 liters of fluids daily. Give Miralax 1 tbsp in 8 oz water at bedtime. If problems continue, return to clinic. Call for an appointment. - Problem List & Annotations (1) Abdominal pain SNOMED Code(s): 23350534 Code(s): R10.9 - UNSPECIFIED ABDOMINAL PAIN Status: Acute Current Visit: Yes - Problem List Review Problem List Initiated/Reviewed/Updated: Yes - My Orders Last 24 Hours: My Active Orders 08/13/18 10:58 Abdomen 1V Upright [CR] Stat - Assessment/Plan Last 24 Hours: My Active Orders 08/13/18 10:58 Abdomen 1V Upright [CR] Stat Assessment:: Abdominal pain NOS Plan: Pt's CBC is normal. His BMP shows normal electrolytes, but his creat is up from 1.9 to 2.25 today. His abdominal X-ray show normal gas pattern with stool in the colon. Pt was offered admission for Iv hydration, but his care associate says he does drink 6-8 large glass of water daily. His abdominal pain might be bethnechol related spasm, or mild constipation. Reassured. advised plenty of oral fluids. stool softeners. miralax 1 table spoon with 8 oz of water at bed time. Should followup with his urologist for his chronic incontinence.
[2018-08-13 15:04] VITALS: BP 122/66
--- NOTE | 2018-08-15 11:15 | CR ---
UPRIGHT ABDOMEN, 08/13/18 There is gas throughout the colon. There are multiple gas filled loops of small bowel in the mid and lower abdomen. They are not distended. There are, however, scattered air-fluid levels throughout the colon and and small bowel. Enterocolitis should be considered. Followup imaging is recommended if clinically indicated There is no free air. 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 The patient is status post left hip arthroplasty. [id number] [facility]
== END 2018-08-13 12:30 | disposition home or self-care (01) ==
LOC: LB.ED 09:51
DX: R10.31 Right lower quadrant pain (principal); I10 Essential (primary) hypertension; E78.00 Pure hypercholesterolemia, unspecified; F41.9 Anxiety disorder, unspecified; Z79.82 Long term (current) use of aspirin; Z79.899 Other long term (current) drug therapy
CPT/HCPCS: 36415; 74018; 80053; 85025; 99284

== ENCOUNTER 2019-01-01 12:11 | Emergency (ER) | payer MEDICARE, OTHER ==
[2019-01-01 13:13] VITALS: BP 174/73
[2019-01-01] MEDS: cefTRIAXone 1 GM Vial IM ONE (14:20)
[2019-01-01] MEDS ORDERED: cefTRIAXone 1 GM Vial ONE (14:23)
--- NOTE | 2019-01-01 20:08 | ER ---
HISTORY OF PRESENT ILLNESS: An 88-year-old male who comes in with family members with complaints of urinary frequency and some dysuria symptoms. This was first noticed over the last couple of days. The patient states at times his lower abdomen will feel some pressure as well, but he thinks it is all connected with going to the bathroom. The patient has not had any problems with diarrhea, nausea, vomiting, coughing or high fever. OBJECTIVE: GENERAL APPEARANCE: The patient is awake and alert. He is smiley and very pleasant in nature. VITAL SIGNS: Reviewed. Temp is 99.4, pulse is 108, blood pressure 174/73, O2 sats are 95% on room air. LUNGS: Clear. There is no CVA tenderness with percussion. ABDOMEN: Soft, nontender to palpation. Bowel sounds are present. SKIN: Warm and dry. LABORATORY DATA: Initially a UA was done, showing a small amount of proteinuria and glucosuria, moderate occult blood, moderate leukocytes and many bacteria, greater than 100 wbc's. At this point, I had a discussion with the patient's daughters and they feel that more lab work is needed to monitor his kidney function. They are concerned that he may need to be in the hospital. This therefore led to obtaining a CBC which showed a white count of 11,006, neutrophils were also elevated. Basic metabolic panel shows his kidney function has not changed much; in fact, his BUN and GFR have improved slightly. His blood sugar is 375 nonfasting. DIAGNOSIS: Urinary tract infection. TREATMENT PLAN: I had a second conversation with one of the patient's daughters and I am suggesting that we give him 1 g of Rocephin IM and get urine culture started. He is monitored at home by multiple family members. They are to continue watching him and we will see what the urine culture shows and this will lead our treatment going forward. He should be given small drinks of water frequently, and as long as someone is available to watch the patient fairly closely, this would be a reasonable treatment plan. The patient's daughter agrees and informed that they will be contacted with the culture results as soon as they are available. HARVEY/DEBBIE /[id number]
== END 2019-01-01 14:30 | disposition home or self-care (01) ==
LOC: LB.ED 12:11
DX: N39.0 Urinary tract infection, site not specified (principal)
CPT/HCPCS: 36415; 80048; 81001; 85025; 87086; 87088; 87186; 96372; 99283; J0696

== ENCOUNTER 2019-03-28 08:21 | Day surgery (SDC) | payer MEDICARE, OTHER ==
[~2019-03-28 08:21] MED LIST: Cephalexin 500 MG Cap PO ONE
[2019-03-28] MEDS ORDERED: Sodium Chloride 0.9% 10 ML Syringe FLUSH PRN (08:30)
[2019-03-28] MEDS ORDERED: ceFAZolin 2 GM in Sodium Chloride 0.9% 100 ML IV ONE (08:30)
[2019-03-28] MEDS ORDERED: Lactated Ringers 1,000 ML IV SCH (08:45)
[2019-03-28] MEDS ORDERED: Lidocaine 1% with EPINEPHrine 1:100,000 20 ML MDV ONE (09:15)
[2019-03-28 12:57] VITALS: BP 128/80; PULSE 94
== END 2019-03-28 13:15 | disposition other institution (70) ==
LOC: LB.SDS 08:21
PROVIDERS: ATTEND Podiatrist Foot & Ankle Surgery
DX: M1A.9XX1 Chronic gout, unspecified, with tophus (tophi) (principal); L08.89 Other specified local infections of the skin and subcutaneous tissue; E11.621 Type 2 diabetes mellitus with foot ulcer; L97.529 Non-pressure chronic ulcer of other part of left foot with unspecified severity; I10 Essential (primary) hypertension; E03.9 Hypothyroidism, unspecified
CPT/HCPCS: 82962; 88302; J2001; J7120